=== PATIENT | female | born 1990 | race Caucasian/White ===

== ENCOUNTER 2020-09-19 10:58 | Outpatient (REF) | payer OTHER, SELFPAY | END 2020-09-19 10:59 | disposition home or self-care (01) | LOC: HO.LAB 10:58 | PROVIDERS: Visit Provider Internal Medicine | DX: Z20.828 Contact with and (suspected) exposure to other viral communicable diseases (principal) | CPT/HCPCS: C9803; U0003 ==

== ENCOUNTER 2020-11-16 13:45 | Outpatient (REF) | payer OTHER, SELFPAY ==
[2020-11-20 21:52] LABS: HPV mRNA E6/E7 Not Detected (Not Detected)
== END 2020-11-16 13:46 | disposition home or self-care (01) ==
LOC: HO.LAB 13:45
PROVIDERS: PCP Internal Medicine; Visit Provider Obstetrics & Gynecology
DX: Z01.419 Encounter for gynecological examination (general) (routine) without abnormal findings (principal); Z79.899 Other long term (current) drug therapy
CPT/HCPCS: 36415; 87624; 87625; 88141; 88142

== ENCOUNTER 2020-12-15 10:37 | Outpatient (REF) | payer OTHER, SELFPAY | END 2020-12-15 10:38 | disposition home or self-care (01) | LOC: HO.LAB 10:37 | PROVIDERS: PCP Internal Medicine; Visit Provider Internal Medicine | DX: Z20.822 Contact with and (suspected) exposure to COVID-19 (principal) | CPT/HCPCS: 36415; C9803; U0003; U0005 ==

== ENCOUNTER 2021-02-02 09:45 | Outpatient (REF) | payer OTHER, SELFPAY ==
[2021-02-02 12:11] LABS: COVID-19 Test Negative (Negative); IDNOW Serial# 55D5AD1C
== END 2021-02-02 09:46 | disposition home or self-care (01) ==
LOC: HO.LAB 09:45
PROVIDERS: Visit Provider Internal Medicine
DX: Z20.822 Contact with and (suspected) exposure to COVID-19 (principal)
CPT/HCPCS: 36415; 87635; C9803

== ENCOUNTER 2021-04-06 12:21 | Outpatient (REF) | payer OTHER, SELFPAY ==
[2021-04-06 14:12] LABS: Glucose Urine UA NEG (NEG); Leukocyte Esterase Urine NEG (NEG); Nitrite Urine NEG (NEG); PH 7.5 (5.0-8.0); Specific Gravity - Urine <= 1.005 (1.005-1.025); Urine Blood NEG (NEG); Urine Ketones NEG (NEG); Urine Protein NEG (NEG-TRACE)
[2021-04-06 14:14] LABS: Appearance Urine HAZY; Color Urine YELLOW
[2021-04-06 15:04] LABS: Alanine Aminotransferase 26 U/L (0-31); Alkaline Phosphatase 30 U/L (39-117); Anion Gap 11 (12-20); Aspartate Amino Transferase 26 U/L (5-31); Bilirubin Direct 0.3 mg/dL (0.0-0.5); Bilirubin Total 0.7 mg/dL (0.0-1.0); Blood Urea Nitrogen 8 mg/dL (9-16); Calcium 8.6 mg/dL (8.4-10.2); Carbon Dioxide 24 mmol/L (22-29); Chloride 109 mmol/L (96-108); Estimated Glomerular Filt Rate > 60; Glucose Random 97 mg/dL (60-115); Potassium 3.8 mmol/L (3.3-5.1); Sodium 140 mmol/L (135-145); Total Protein 7.1 g/dL (6.5-8.0)
== END 2021-04-06 12:22 | disposition home or self-care (01) ==
LOC: HO.LAB 12:21
PROVIDERS: PCP Internal Medicine; Visit Provider Physician Assistant
DX: R30.0 Dysuria (principal); R10.9 Unspecified abdominal pain
CPT/HCPCS: 36415; 80048; 80076; 81003

== ENCOUNTER 2021-04-08 10:12 | Emergency (ER) | payer OTHER, SELFPAY ==
[2021-04-08 11:09] VITALS: BP 171/92; PULSE 81; RESP 18; TEMP 36.8; O2SAT 100; BMI 35.2
--- NOTE | 2021-04-08 11:18 | ED.GENADULT ---
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 She had blood work and urine testing done by her PCP on Friday but had not heard the results. She is worried it is kidney related. She also reports an episode of dizziness this morning that last about 3 minutes when she was trying to make her bed. She also reports intermittent SOB and palpitations. She says her back pain is worse with deep breaths. No cough, no chest pain. MD complaint: back pain Onset (ago): week(s) (1) Location: back Radiation: non-radiation Severity: moderate Severity scale (1-10): 6 Quality: stabbing and aching Pain Consistency: constant Relieving factors: rest Exacerbating factors: movement and other (cough, deep breaths) Associated symptoms: shortness of breath Treatments prior to arrival: none Related Data Home Medications Medication Instructions Recorded Confirmed acetazolamide 500 mg 500 mg PO DAILY cap 08/16/20 11/16/20 capsule,extended release adalimumab 40 mg/0.8 mL See Rx Instructions SUBCUT .COMPLEX 08/16/20 11/16/20 subcutaneous syringe kit dorzolamide 22.3 mg-timolol 6.8 1 drp OPHTHALMIC (EYE) BID 08/16/20 11/16/20 mg/mL eye drops Previous Rx's Medication Instructions Recorded norgestimate-ethinyl estradiol 1 tab PO DAILY #28 tab 11/16/20 0.18 mg/0.215mg/0.25mg-35 mcg(28)tablet cyclobenzaprine 5 mg PO TID PRN #14 tab 04/08/21 ibuprofen 600 mg PO Q8H PRN #10 tab 04/08/21 lidocaine [Lidoderm] 1 patch TOPICAL DAILY #15 ea 04/08/21 Allergies Allergy/AdvReac Type Severity Reaction Status Date / Time amoxicillin [Amoxicillin] Allergy Mild HIVES Verified 11/16/20 13:49 amitriptyline Allergy Unknown increase Verified 11/16/20 13:49 [facility] sumatriptan Allergy Unknown Unknown Verified 11/16/20 13:49 Review of Systems Review of Systems: Constitutional: No Fever, No Chills ENT/Mouth: No sore throat, No Rhinorrhea, No Swallowing Difficulty Eyes: No Eye Pain, No Swelling, No Redness Cardiovascular: No Chest Pain, + SOB, No Orthopnea, No Edema Respiratory: No Cough, No Sputum, No Wheezing, No dyspnea Gastrointestinal: No Nausea, No Vomiting, No Diarrhea, No abdominal Pain Genitourinary: No Dysuria, No Urinary Frequency, No Hematuria Musculoskeletal: + joint pain, + Myalgias Skin: No Skin Lesions, No rash Neuro: No Weakness, No Numbness, + Dizziness, No Headache Psych: + Anxiety/Panic, No Depression Heme/Lymph: No Bruising, No Lymphadenopathy Endocrine: No Polyuria, No Polydipsia [facility] Past Medical History Attestation statement: The following information was validated with the patient. Surgical History History of bilateral cataract extraction History of eye surgery History of glaucoma Family History Family History Father No problems noted. Mother No problems noted. Maternal Uncle FH: testicular cancer Social History Social History Alcohol intake: current Alcohol intake frequency: holidays/special occasions only Patient Tobacco Use Status: Never used Tobacco Use of substances other than those prescribed or required for medical reasons: No Advance Directives: Yes Advance Directives Information Provided: Yes Advance Directives on File: No Patient : No Gender identity: female Physical Exam Vital Signs: Vital Signs: Last Vital Signs Temp 98.2 F 04/08/21 12:00 Pulse 63 04/08/21 12:00 Resp 18 04/08/21 12:00 BP 127/70 04/08/21 12:00 Pulse Ox 100 04/08/21 12:00 Body Mass Index 35.2 Appearance: Alert. Oriented X3. No acute distress. Eyes: Pupils equal, round and reactive to light. ENT: Pharynx normal. Neck: Normal inspection. Neck supple. CVS: Normal heart rate and rhythm. Pulses normal. Respiratory: No respiratory distress. Breath sounds normal. Abdomen: Soft and non-tender. +BS x4 Back: thoracic back tenderness of the soft tissues bilaterally Skin: Skin warm and dry. Normal skin color. Normal skin turgor. No rashes. Extremities: No lower extremity edema. Negative Jordan's sign. Neuro: Oriented X 3. No motor deficit. No sensory deficit. Course Course Course Narrative: 30 y/o female with history of RA and glaucoma presenting with back pain and dizziness. She appears well and pain is reproducible on exam, probable muscular pain. Will get repeat labs and UA - doubt pyelonephritis and doubt kidney stones given pain is bilateral. Reevaluation(s) Reevaluation #1: Labs and UA are unremarkable. DDIMER is negative. Will treat for muscular back pain and have her f/u with her PCP this week. Patient agrees with plan. Medical Decision Making Lab Data Result diagrams: 04/08/21 11:24 04/08/21 11:24 Labs: Lab Results 04/08/21 04/08/21 04/08/21 Range/Units 11:18 11:18 11:24 WBC 9.1 (4.8-10.8) X10*3/uL RBC 4.31 (4.20-5.50) X10*6/uL Hgb 12.8 (12.0-16.0) g/dl Hct 38.5 (37-47) % MCV 89.3 (80-98) fL MCH 29.7 (27.0-33.0) pg MCHC 33.2 (31.0-35.0) g/dl RDW 12.1 (11.0-16.0) % Plt Count 195 (160-400) X10*3/uL MPV 10.2 (9.4-12.3) fL Immature Gran % (Auto) 0.2 (0.0-0.4) % Neut % (Auto) 63.2 (45-73) % Lymph % (Auto) 25.4 (20-40) % [place] % (Auto) 8.3 (2-11) % Eos % (Auto) 2.0 (0-4) % Baso % (Auto) 0.9 (0-2) % Lymph # (Auto) 2.3 (1.2-4.9) X10*3/uL [place] # (Auto) 0.8 (0.1-1.2) X10*3/uL Eos # (Auto) 0.2 (0.0-0.4) X10*3/uL Baso # (Auto) 0.1 (0.0-0.2) X10*3/uL Abs Immat Gran (auto) 0.02 (0.00-0.03) X10*3/uL Absolute Neuts (auto) 5.7 (2.0-8.3) X10*3/uL Absolute Nucleated RBC 0.000 (0.0-0.012) X10*3/uL Nucleated RBC % (auto) 0.0 (0.0-0.2) /100WBC D-Dimer NG/ML Sodium (135-145) mmol/L Potassium (3.3-5.1) mmol/L Chloride (96-108) mmol/L Carbon Dioxide (22-29) mmol/L Anion Gap (12-20) BUN (9-16) mg/dL Creatinine (0.5-1.4) mg/dL Estim Creat Clear Calc Estimated GFR Random Glucose (60-115) mg/dL Calcium (8.4-10.2) mg/dL Magnesium (1.6-2.6) mg/dL Total Bilirubin (0.0-1.0) mg/dL Direct Bilirubin (0.0-0.5) mg/dL AST (5-31) U/L ALT (0-31) U/L Alkaline Phosphatase (39-117) U/L Total Protein (6.5-8.0) g/dL Albumin (3.5-5.0) g/dL Urine Color STRAW Urine Appearance CLEAR Urine pH 7.0 (5.0-8.0) Ur Specific [place] <= 1.005 (1.005-1.025) Urine Protein NEG (NEG-TRACE) MG/DL Urine Glucose (UA) NEG (NEG) MG/DL Urine Ketones NEG (NEG) MG/DL Urine Blood NEG (NEG) Urine Nitrite NEG (NEG) Ur Leukocyte Esterase NEG (NEG) Urine Test NEGATIVE (NEGATIVE) 04/08/21 04/08/21 Range/Units 11:24 12:35 WBC (4.8-10.8) X10*3/uL RBC (4.20-5.50) X10*6/uL Hgb (12.0-16.0) g/dl Hct (37-47) % MCV (80-98) fL MCH (27.0-33.0) pg MCHC (31.0-35.0) g/dl RDW (11.0-16.0) % Plt Count (160-400) X10*3/uL MPV (9.4-12.3) fL Immature Gran % (Auto) (0.0-0.4) % Neut % (Auto) (45-73) % Lymph % (Auto) (20-40) % [place] % (Auto) (2-11) % Eos % (Auto) (0-4) % Baso % (Auto) (0-2) % Lymph # (Auto) (1.2-4.9) X10*3/uL [place] # (Auto) (0.1-1.2) X10*3/uL Eos # (Auto) (0.0-0.4) X10*3/uL Baso # (Auto) (0.0-0.2) X10*3/uL Abs Immat Gran (auto) (0.00-0.03) X10*3/uL Absolute Neuts (auto) (2.0-8.3) X10*3/uL Absolute Nucleated RBC (0.0-0.012) X10*3/uL Nucleated RBC % (auto) (0.0-0.2) /100WBC D-Dimer < 200 NG/ML Sodium 138 (135-145) mmol/L Potassium 3.8 (3.3-5.1) mmol/L Chloride 108 (96-108) mmol/L Carbon Dioxide 22 (22-29) mmol/L Anion Gap 12 (12-20) BUN 11 (9-16) mg/dL Creatinine 0.77 (0.5-1.4) mg/dL Estim Creat Clear Calc 126.7 Estimated GFR > 60 Random Glucose 85 (60-115) mg/dL Calcium 8.9 (8.4-10.2) mg/dL Magnesium 2.1 (1.6-2.6) mg/dL Total Bilirubin 0.7 (0.0-1.0) mg/dL Direct Bilirubin 0.3 (0.0-0.5) mg/dL AST 28 (5-31) U/L ALT 29 (0-31) U/L Alkaline Phosphatase 31 L (39-117) U/L Total Protein 7.2 (6.5-8.0) g/dL Albumin 4.0 (3.5-5.0) g/dL Urine Color Urine Appearance Urine pH (5.0-8.0) Ur Specific [place] (1.005-1.025) Urine Protein (NEG-TRACE) MG/DL Urine Glucose (UA) (NEG) MG/DL Urine Ketones (NEG) MG/DL Urine Blood (NEG) Urine Nitrite (NEG) Ur Leukocyte Esterase (NEG) Urine Test (NEGATIVE) Discharge Plan Discharge Clinical Impression: Thoracic back pain Qualifiers: Chronicity: acute Back pain laterality: bilateral Qualified Code(s): M54.6 - Pain in thoracic spine Patient Disposition: Home, Self-Care Instructions: Back Pain (ED) Additional Instructions: Your lab workup today was normal. Your urine test was normal. It is likely that your pain is muscular in nature. No bending, lifting or twisting. Use ice several times per day for 20 minutes at a time for the next 48 hours and then change to heat. Take medications as prescribed to help with pain and discomfort. Follow up with your Primary Care Doctor this week. If your pain worsens, if you develop any new or concerning sympotoms come back to the ER right away for evaluation. Prescriptions: New cyclobenzaprine 5 mg tablet 5 mg PO TID PRN (Reason: muscle spasm) Qty: 14 RF: 0 ibuprofen 600 mg tablet 600 mg PO Q8H PRN (Reason: pain) Qty: 10 RF: 0 lidocaine [Lidoderm] 5 % adhesive patch,medicated 1 patch topical DAILY Qty: 15 RF: 0 No Action acetazolamide 500 mg capsule, extended release 500 mg PO DAILY RF: 0 dorzolamide-timolol [Cosopt] 22.3-6.8 mg/mL drops 1 drp ophthalmic (eye) BID RF: 0 Humira 40 mg/0.8 mL syringe kit See Rx Instructions subcut .COMPLEX RF: 0 norgestimate-ethinyl estradiol [Ortho Tri-Cyclen (28)] 0.18/0.215/0.25 mg-35 mcg (28) tablet 1 tab PO DAILY Qty: 28 RF: 11 Interventions: ED Discharge Assessment Last Done: 04/08/21 13:15 Discharge Date/Time: 04/08/21 13:17
[2021-04-08 11:26] LABS: Glucose Urine UA NEG (NEG); Leukocyte Esterase Urine NEG (NEG); Nitrite Urine NEG (NEG); Specific Gravity - Urine <= 1.005 (1.005-1.025); Urine Blood NEG (NEG); Urine Ketones NEG (NEG); Urine Protein NEG (NEG-TRACE)
[2021-04-08 11:28] LABS: MANUAL DIFF FLAG NO
[2021-04-08 11:28] LABS: Appearance Urine CLEAR; Color Urine STRAW
[2021-04-08 11:29] LABS: UPreg QC Valid YES; Urine Pregnancy NEGATIVE (NEGATIVE)
[2021-04-08 11:30] LABS: Basophils Absolute Auto 0.1 X10*3/uL (0.0-0.2); Basophils Percent Auto 0.9 % (0-2); Eosinophils Absolute Auto 0.2 X10*3/uL (0.0-0.4); Hematocrit 38.5 % (37-47); Hemoglobin 12.8 g/dl (12.0-16.0); Imm Gran Abs Auto 0.02 X10*3/uL (0.00-0.03); Imm Gran Pct Auto 0.2 % (0.0-0.4); Lymphocytes Absolute Auto 2.3 X10*3/uL (1.2-4.9); Lymphocytes Percent Auto 25.4 % (20-40); Mean Corpuscular HGB Conc 33.2 g/dl (31.0-35.0); Mean Corpuscular Hemoglobin 29.7 pg (27.0-33.0); Mean Corpuscular Volume 89.3 fL (80-98); Mean Platelet Volume 10.2 fL (9.4-12.3); Monocytes Absolute Auto 0.8 X10*3/uL (0.1-1.2); Monocytes Percent Auto 8.3 % (2-11); Neutrophils Absolute Auto 5.7 X10*3/uL (2.0-8.3); Neutrophils Percent Auto 63.2 % (45-73); Platelet Count 195 X10*3/uL (160-400); Red Blood Count 4.31 X10*6/uL (4.20-5.50); Red Cell Distribution Width 12.1 % (11.0-16.0); White Blood Count 9.1 X10*3/uL (4.8-10.8)
[2021-04-08 12:00] VITALS: BP 127/70; PULSE 63; RESP 18; TEMP 36.8; O2SAT 100
[2021-04-08 12:08] LABS: Alanine Aminotransferase 29 U/L (0-31); Alkaline Phosphatase 31 U/L (39-117); Anion Gap 12 (12-20); Aspartate Amino Transferase 28 U/L (5-31); Bilirubin Direct 0.3 mg/dL (0.0-0.5); Bilirubin Total 0.7 mg/dL (0.0-1.0); Blood Urea Nitrogen 11 mg/dL (9-16); Calcium 8.9 mg/dL (8.4-10.2); Carbon Dioxide 22 mmol/L (22-29); Chloride 108 mmol/L (96-108); Creatinine Clr Calc Pharmacy 126.7; Estimated Glomerular Filt Rate > 60; Glucose Random 85 mg/dL (60-115); Magnesium 2.1 mg/dL (1.6-2.6); Potassium 3.8 mmol/L (3.3-5.1); Sodium 138 mmol/L (135-145); Total Protein 7.2 g/dL (6.5-8.0)
[2021-04-08 12:54] LABS: D Dimer < 200 NG/ML
== END 2021-04-08 13:17 | disposition home or self-care (01) ==
PROVIDERS: Physician Assistant; Emergency Provider Emergency Medicine Emergency Medical Services; PCP Internal Medicine
DX: M54.6 Pain in thoracic spine (principal); R42 Dizziness and giddiness
CPT/HCPCS: 36415; 80048; 80076; 81003; 81025; 83735; 85025; 85379; 99284

== ENCOUNTER 2021-08-09 10:55 | Outpatient (REF) | payer OTHER, SELFPAY ==
[2021-08-09 11:09] LABS: MANUAL DIFF FLAG NO
[2021-08-09 11:34] LABS: Basophils Absolute Auto 0.1 X10*3/uL (0.0-0.2); Basophils Percent Auto 0.7 % (0-2); Eosinophils Absolute Auto 0.2 X10*3/uL (0.0-0.4); Eosinophils Percent Auto 1.9 % (0-4); Hemoglobin 12.7 g/dl (12.0-16.0); Imm Gran Abs Auto 0.02 X10*3/uL (0.00-0.03); Imm Gran Pct Auto 0.2 % (0.0-0.4); Lymphocytes Absolute Auto 2.4 X10*3/uL (1.2-4.9); Lymphocytes Percent Auto 28.6 % (20-40); Mean Corpuscular HGB Conc 32.6 g/dl (31.0-35.0); Mean Corpuscular Hemoglobin 29.1 pg (27.0-33.0); Mean Corpuscular Volume 89.4 fL (80-98); Mean Platelet Volume 10.1 fL (9.4-12.3); Monocytes Absolute Auto 0.6 X10*3/uL (0.1-1.2); Monocytes Percent Auto 7.7 % (2-11); Neutrophils Absolute Auto 5.1 X10*3/uL (2.0-8.3); Neutrophils Percent Auto 60.9 % (45-73); Platelet Count 216 X10*3/uL (160-400); Red Blood Count 4.36 X10*6/uL (4.20-5.50); Red Cell Distribution Width 12.3 % (11.0-16.0); White Blood Count 8.3 X10*3/uL (4.8-10.8)
[2021-08-09 11:54] LABS: B Type Natriuretic Peptide 58 pg/mL (<100)
[2021-08-09 12:03] LABS: Alanine Aminotransferase 54 U/L (0-31); Alkaline Phosphatase 35 U/L (39-117); Anion Gap 14 (12-20); Aspartate Amino Transferase 31 U/L (5-31); Bilirubin Total 0.9 mg/dL (0.0-1.0); Blood Urea Nitrogen 11 mg/dL (9-16); Calcium 8.9 mg/dL (8.4-10.2); Carbon Dioxide 20 mmol/L (22-29); Chloride 110 mmol/L (96-108); Cholesterol 181 mg/dL; Estimated Glomerular Filt Rate > 60; Glucose Random 92 mg/dL (60-115); HDL Cholesterol 67 mg/dL; LDL Cholesterol Calculated 79 mg/dl; Potassium 3.6 mmol/L (3.3-5.1); Sodium 140 mmol/L (135-145); Total Protein 7.2 g/dL (6.5-8.0); Triglycerides 179 mg/dL
[2021-08-09 12:07] LABS: Free T4 (Free Thyroxine) 0.81 ng/dL (0.71-1.85); Vitamin D 25-OH Total 25.7 ng/mL (>30)
[2021-08-09 12:23] LABS: Appearance Urine HAZY; Color Urine YELLOW; Glucose Urine UA NEG (NEG); Leukocyte Esterase Urine NEG (NEG); Nitrite Urine NEG (NEG); Specific Gravity - Urine 1.015 (1.005-1.025); Urine Blood NEG (NEG); Urine Ketones NEG (NEG); Urine Protein NEG (NEG-TRACE)
[2021-08-09 12:24] LABS: Folate 19.8 ng/mL (> or = 4.0); Vitamin B12 293 pg/mL (200-900)
[2021-08-09 12:28] LABS: Erythrocyte Sedimentation Rate 8 MM/HR (0-20)
[2021-08-09 13:56] LABS: Bacteria Urine 2+ /LPF; RBC Urine 0 /HPF (0); Squamous Epithelial Cell Urine 3+ /LPF; WBC Urine 0-2 /HPF (0-4)
[2021-08-10 08:36] LABS: Lyme Abs Screen <0.90 index
== END 2021-08-09 10:56 | disposition home or self-care (01) ==
LOC: HO.LAB 10:55
PROVIDERS: PCP Internal Medicine; Visit Provider Internal Medicine
DX: R55 Syncope and collapse (principal); E78.00 Pure hypercholesterolemia, unspecified
CPT/HCPCS: 36415; 80053; 80061; 81001; 82306; 82607; 82746; 83880; 84439; 85025; 85652; 86617; 86618

== ENCOUNTER 2021-08-30 07:52 | Outpatient (REF) | payer OTHER, SELFPAY ==
--- NOTE | ~2021-08-30 | US_ITS ---
EXAMINATION: US ABDOMEN COMPLETE CLINICAL INFORMATION: Other specified abnormal findings of blood chemistry. COMPARISON: None TECHNIQUE: Real-time imaging of the abdominal viscera. FINDINGS: PANCREAS: Normal. ABDOMINAL AORTA: The proximal, mid, and distal segments are normal in caliber. INFERIOR VENA CAVA: Visualized portions are normal. LIVER: The liver is normal in size. The liver contour is normal. Liver echotexture is increased. No focal hepatic lesion. There is no intrahepatic biliary duct dilatation seen. GALLBLADDER: Normal. The gallbladder is physiologically distended without evidence of stones, sludge, polyps, wall thickening or pericholecystic fluid. COMMON BILE DUCT: Normal in caliber measuring 0.3 cm in diameter. RIGHT KIDNEY: Normal. No hydronephrosis. No renal calculi or focal parenchymal lesions. The kidney measures 10.3 cm in maximum dimension. LEFT KIDNEY: Normal. No hydronephrosis. No renal calculi or focal parenchymal lesions. The kidney measures 10.4 cm in maximum dimension. SPLEEN: Normal. The spleen measures 8.8 cm in maximum dimension. FREE FLUID: None. US/US abdomen complete IMPRESSION: Echogenic liver probably representing fatty infiltration. Otherwise unremarkable exam.
[2021-08-30 09:29] LABS: Alanine Aminotransferase 88 U/L (0-31); Albumin Level 4.2 g/dL (3.5-5.0); Alkaline Phosphatase 36 U/L (39-117); Anion Gap 11 (12-20); Aspartate Amino Transferase 70 U/L (5-31); Bilirubin Total 0.7 mg/dL (0.0-1.0); Blood Urea Nitrogen 9 mg/dL (9-16); Calcium 8.8 mg/dL (8.4-10.2); Carbon Dioxide 24 mmol/L (22-29); Chloride 110 mmol/L (96-108); Estimated Glomerular Filt Rate > 60; Glucose Random 100 mg/dL (60-115); Iron 78 mcg/dL (30-160); Percent Iron Saturation 19 % (15-50); Potassium 3.9 mmol/L (3.3-5.1); Sodium 141 mmol/L (135-145); Total Iron Binding Capacity 401 mcg/dL (228-428); Total Protein 7.4 g/dL (6.5-8.0); Unsaturated Iron Binding 323 ug/dL
[2021-08-30 09:44] LABS: HBS Num1 0.83 mIU/mL (0-7.99); HBc Num1 0.07 S/CO (0.00-0.79); HBsAGNum1 0.22 S/CO (0.00-0.99); Hepatitis B Core Antibody Nonreactive (Nonreactive); Hepatitis B Surface Antigen Negative (Negative); ~HepC Num1 0.09 S/CO (0.00-0.79); ~Hepatitis B Surface Antibody NONREACTIVE (Nonreactive); ~Hepatitis C Antibody Nonreactive (Nonreactive)
[2021-08-30 09:58] LABS: Ferritin 38 ng/mL (10-122)
[2021-08-31 13:46] LABS: Ceruloplasmin 35 mg/dL (18-53)
== END 2021-08-30 07:53 | disposition home or self-care (01) ==
LOC: HO.US 07:52
PROVIDERS: PCP Internal Medicine; Visit Provider Internal Medicine
DX: R79.89 Other specified abnormal findings of blood chemistry (principal); R94.5 Abnormal results of liver function studies
CPT/HCPCS: 36415; 76700; 80053; 82390; 82728; 83540; 86704; 86706; 86803; 87340

== ENCOUNTER 2021-09-21 14:05 | Outpatient (REF) | payer OTHER, SELFPAY ==
--- NOTE | ~2021-09-21 | MR_ITS ---
EXAMINATION: MR BRAIN WITHOUT CONTRAST CLINICAL INFORMATION: Seizures. Dizziness and vertigo. COMPARISON: Head CT dated 07/03/2014. TECHNIQUE: Multiplanar, multisequence imaging of the brain was acquired on a 1.5 Marzena magnet without contrast. FINDINGS: No diffusion abnormalities are identified to suggest an acute infarct. The ventricles are normal in size. No mass effect or midline shift is seen. A 7 mm focus of T2 hyperintense signal change in the left parietal white matter is entirely nonspecific. No extra-axial fluid collections are seen. The brainstem and cerebellum are normal. No focal cortical dysplasia or migrational abnormality is seen. The hippocampi are normal in appearance. The gradient refocused acquisition demonstrates no pathologic magnetic susceptibility artifact to indicate underlying acute or chronic blood products. There is a chronically shrunken appearance of the right globe. The left globe is normal in morphology. The craniovertebral junction, marrow signal, and midline structures are normal. The orbits and pituitary axis appear normal. The major intracranial flow-voids at the level of the hoopa of [place] are preserved. The dural venous sinus flow-voids are maintained. The mastoid air cells and paranasal sinuses are well aerated. MR/MR head/brain wo con IMPRESSION: No acute process. Nonspecific subcentimeter focus of signal change in the left parietal white matter of indeterminate clinical significance. No hippocampal pathology or epileptogenic focus otherwise identified.
== END 2021-09-21 14:06 | disposition home or self-care (01) ==
LOC: HO.MRI 14:05
PROVIDERS: PCP Internal Medicine; Visit Provider Psychiatry & Neurology Neurology
DX: R56.9 Unspecified convulsions (principal); R42 Dizziness and giddiness
CPT/HCPCS: 70551

== ENCOUNTER 2021-10-10 17:08 | Emergency (ER) | payer OTHER, SELFPAY ==
[2021-10-10 17:23] VITALS: BP 168/88; PULSE 76; RESP 18; TEMP 36.9; O2SAT 98; BMI 35.0
--- NOTE | 2021-10-10 19:24 | ED_ITS ---
HPI - General Adult General Chief complaint: General Medical Stated complaint: No feeling on index finger/+Covid Time Seen by Provider: 10/10/21 19:24 Source: patient Mode of arrival: ambulatory Limitations: no limitations History of Present Illness HPI narrative: 31-year-old female who was recently diagnosed COVID-19 presents to ER with numbness in her left index finger for the last MD complaint: left index finger numbness Related Data Home Medications Medication Instructions Recorded Confirmed acetazolamide 500 mg 500 mg PO DAILY cap 08/16/20 07/31/21 capsule,extended release adalimumab 40 mg/0.8 mL See Rx Instructions SUBCUT .COMPLEX 08/16/20 07/31/21 subcutaneous syringe kit (Humira) dorzolamide 22.3 mg-timolol 6.8 1 drp OPHTHALMIC (EYE) BID 08/16/20 07/31/21 mg/mL eye drops (Cosopt) loteprednol etabonate 0.5 % eye 1 drp OPHTHALMIC (EYE) BID 07/31/21 07/31/21 drops,suspension (Lotemax) Previous Rx's Medication Instructions Recorded norgestimate-ethinyl estradiol 1 tab PO DAILY #28 tab 11/16/20 0.18 mg/0.215mg/0.25mg-35 mcg(28)tablet (Ortho Tri-Cyclen (28)) Allergies Allergy/AdvReac Type Severity Reaction Status Date / Time amoxicillin [Amoxicillin] Allergy Mild HIVES Verified 07/31/21 14:50 amitriptyline Allergy Unknown increase Verified 07/31/21 14:50 [facility] sumatriptan Allergy Unknown Unknown Verified 07/31/21 14:50 [facility] Past Medical History Medical History (Updated 08/09/21 @ 18:56 by Javed Lopez MD) Asthma Cervical dysplasia Generalized anxiety disorder Glaucoma Juvenile rheumatoid arthritis Migraine Obesity (BMI 30-39.9) Surgical History History of bilateral cataract extraction History of eye surgery History of glaucoma Family History Family History (Updated 07/31/21 @ 16:30 by Javed Lopez MD) Father Substance abuse Mother No problems noted. Maternal Uncle FH: testicular cancer Social History Social History (Updated 07/31/21 @ 16:31 by Javed Lopez MD) Housing: Other Alcohol intake: current Alcohol intake frequency: holidays/special occasions only Patient Tobacco Use Status: Former Tobacco user Tobacco use type: Cigarette Years Smoked: 2019 e-Cigarette/Vaping Use: Never Used Second Hand Smoke Exposure: No Current occupational status: unemployed Gender identity: Female Physical Exam Vital Signs: Vital Signs: Last Vital Signs Temp 98.4 F 10/10/21 17:23 Pulse 76 10/10/21 17:23 Resp 18 10/10/21 17:23 BP 168/88 H 10/10/21 17:23 Pulse Ox 98 10/10/21 17:23 BMI result Body Mass Index 35.0 Discharge Plan Discharge Prescriptions: No Action loteprednol etabonate [Lotemax] 0.5 % drops,suspension 1 drp ophthalmic (eye) BID RF: 0 acetazolamide 500 mg capsule, extended release 500 mg PO DAILY RF: 0 dorzolamide-timolol [Cosopt] 22.3-6.8 mg/mL drops 1 drp ophthalmic (eye) BID RF: 0 Humira 40 mg/0.8 mL syringe kit See Rx Instructions subcut .COMPLEX RF: 0 norgestimate-ethinyl estradiol [Ortho Tri-Cyclen (28)] 0.18/0.215/0.25 mg-35 mcg (28) tablet 1 tab PO DAILY Qty: 28 RF: 11
== END 2021-10-10 20:47 | disposition left against medical advice (07) ==
PROVIDERS: Emergency Provider Emergency Medicine; PCP Internal Medicine
DX: U07.1 COVID-19 (principal)
CPT/HCPCS: 99281; 99282

== ENCOUNTER 2021-10-11 12:57 | Emergency (ER) | payer OTHER, SELFPAY ==
[2021-10-11 13:35] VITALS: BP 139/74; PULSE 89; RESP 18; TEMP 36.6; O2SAT 99; BMI 35.0
[2021-10-11 16:59] VITALS: BP 132/76; PULSE 78; RESP 16; TEMP 36.8; O2SAT 99
--- NOTE | 2021-10-11 17:11 | ED.GENADULT ---
HPI - General Adult General Chief complaint: General Medical Stated complaint: l index finger blue no sensation Time Seen by Provider: 10/11/21 16:05 Source: patient Mode of arrival: ambulatory Limitations: no limitations History of Present Illness HPI narrative: 31-year-old female diagnosed with COVID this past Friday presents to the ED for evaluation of left hand and left feet. Patient states sometimes left index finger gets cold and left feet get cold. Patient states left index finger yesterday will fabiola when expose to the cold and then returned to normal color. Patient denies any bluish black discoloration of hands or feet. Denies any recent trauma. Patient denies any paralysis of extremities, facial droop, dizziness, headache, chest pain, or shortness of breath. Patient admits to self-isolation. Patient denies any recent trauma. Related Data Home Medications Medication Instructions Recorded Confirmed acetazolamide 500 mg 500 mg PO DAILY cap 08/16/20 07/31/21 capsule,extended release adalimumab 40 mg/0.8 mL See Rx Instructions SUBCUT .COMPLEX 08/16/20 07/31/21 subcutaneous syringe kit (Humira) dorzolamide 22.3 mg-timolol 6.8 1 drp OPHTHALMIC (EYE) BID 08/16/20 07/31/21 mg/mL eye drops (Cosopt) loteprednol etabonate 0.5 % eye 1 drp OPHTHALMIC (EYE) BID 07/31/21 07/31/21 drops,suspension (Lotemax) Previous Rx's Medication Instructions Recorded norgestimate-ethinyl estradiol 1 tab PO DAILY #28 tab 11/16/20 0.18 mg/0.215mg/0.25mg-35 mcg(28)tablet (Ortho Tri-Cyclen (28)) Allergies Allergy/AdvReac Type Severity Reaction Status Date / Time amoxicillin [Amoxicillin] Allergy Mild HIVES Verified 07/31/21 14:50 amitriptyline Allergy Unknown increase Verified 07/31/21 14:50 [facility] sumatriptan Allergy Unknown Unknown Verified 07/31/21 14:50 Review of Systems Review of Systems: Yes all other systems are reviewed and are negative Constitutional: Constitutional: Reports as per HPI and Reports no additional constitutional complaints Eyes: Eyes: Reports as per HPI and Reports no additional eye complaints ENT: Reports system reviewed and no additional complaints, except as documented, Reports as per HPI and Reports Normal hearing present Cardiovascular: Cardiovascular: Reports as per HPI and Reports no additional cardiovascular complaints Respiratory: Respiratory: Reports as per HPI and Reports no additional respiratory complaints Gastrointestinal: Gastrointestinal: Reports as per HPI and Reports no additional gastrointestinal complaints Genitourinary: Genitourinary: Reports no additional female genitourinary complaints and Reports as per HPI Musculoskeletal: Musculoskeletal: Reports no additional musculoskeletal complaints and Reports as per HPI Comments: COVID positive. At times left hand/left foot will feel cold. Neurologic: Reports system reviewed and no additional complaints, except as documented, Reports as per HPI and Reports Normal hearing present Psychiatric: Psychiatric: Reports no additional psychiatric complaints and Reports as per HPI [facility] Past Medical History Medical History (Updated 10/11/21 @ 17:28 by OZ Gee) Asthma Cervical dysplasia Generalized anxiety disorder Glaucoma Juvenile rheumatoid arthritis Migraine Obesity (BMI 30-39.9) Surgical History History of bilateral cataract extraction History of eye surgery History of glaucoma Family History Family History (Updated 07/31/21 @ 16:30 by Javed Lopez MD) Father Substance abuse Mother No problems noted. Maternal Uncle FH: testicular cancer Social History Social History (Updated 07/31/21 @ 16:31 by Javed Lopez MD) Housing: Other Alcohol intake: current Alcohol intake frequency: holidays/special occasions only Patient Tobacco Use Status: Former Tobacco user Tobacco use type: Cigarette Years Smoked: 2019 e-Cigarette/Vaping Use: Never Used Second Hand Smoke Exposure: No Advance Directives: No Advance Directives Information Provided: Yes Current occupational status: unemployed Gender identity: Female Physical Exam Vital Signs: Vital Signs: Last Vital Signs Temp 98.2 F 10/11/21 16:59 Pulse 78 10/11/21 16:59 Resp 16 10/11/21 16:59 BP 132/76 10/11/21 16:59 Pulse Ox 99 10/11/21 16:59 BMI result Body Mass Index 35.0 Const: General: cooperative, healthy appearing, comfortable, no acute distress, well developed, alert, awake and Physically active Orientation/consciousness: oriented to person, oriented to place, oriented to time and patient oriented x3 HENMT: Head: Yes normal to inspection, Yes No palpable skull fracture present, Yes normocephalic, Yes atraumatic and No abrasion Eyes: General: appearance normal, both eyes and all related structures Pupils: Equal, round and reactive pupils present Neck: Neck: Yes normal visual inspection, Yes full ROM, Yes no lymphadenopathy, Yes no meningeal signs, Yes trachea midline, Yes supple, No anterior neck swelling and No tender Chest: Chest palpation & inspection: normal inspection of the chest and normal palpation of entire chest wall Resp: Effort & Inspection: normal respiratory effort and able to speak in complete sentences Auscultation: clear to auscultation bilaterally Cardio: Jugular venous distension: no JVD Heart sounds: S1 normal heart sound present and S2 normal heart sound present GI: Inspection: Yes normal to inspection and No abdominal wall ecchymosis Palpation (GI): Soft to palpation, not firm, nontender, no guarding and not rigid : General: No CVA tenderness and Yes no CVA tenderness Back/Spine/Pelvis: Back: no CVA tenderness, No CVA tenderness and No back tenderness Skin: General skin exam: no rashes or lesions noted and elasticity normal Neuro: General: oriented to person, oriented to place, oriented to time, patient oriented x3, gait normal, tone normal, moves all extremities, Normal light touch and pain sensation, no meningeal signs, no focal motor deficits, CN's II-XI intact bilaterally and deep tendon reflexes 2+ bilaterally Cranial nerves: Yes CN's II-XII intact bilaterally, Yes Facial sensation intact/muscles of mastication intact, Yes Intact sense of smell present, Yes Equal, round and reactive pupils present, Yes Normal accommodation reflex present, Yes Bilaterally intact EOM present, Yes Nystagmus not present, Yes Normal facial strength present, Yes Midline tongue present, Yes Normal gag reflex present, Yes Symmetric palate elevation present, Yes Normal hearing present, Yes Ability to bilaterally rotate head present and Yes Ability to bilaterally elevate shoulders present Extrem: Other: All extremites including left upper and lower extremities have normal color, warm to touch, and motor/nose/vascular exam intact. All extremities Negative for any bluish black discoloration. All extremities Negative for ecchymosis to indicate fracture. All extremities Negative for any swelling or erythema. General: Yes normal to inspection and Yes full ROM Psych: Appearance: grossly normal, well kempt and not disheveled Course Course Course Narrative: Physical exam normal Reevaluation(s) Reevaluation #1: Presently history and physical exam does not indicate arterial occlusion, fracture, or cellulitis. Symptoms could be contributed to Covid Chilblains. Patient was educated on signs and symptoms of arterial occlusion/dVT/cellulitis and informed to return to the ED immediately if she has them. Patient informed to continue quarantine. Time: 17:26 Medical Decision Making MDM Narrative Medical decision making narrative: COVID Discharge Plan Discharge Clinical Impression: COVID Patient Disposition: Home, Self-Care Instructions: COVID-19 (Coronavirus Disease 2019) (ED) Additional Instructions: Presently history physical exam does not indicate arterial occlusion, DVT, cellulitis, or fracture. Return to the ED for any chest pain, shortness of breath, swelling, redness, hotness, coldness, bluish black discoloration of extremities, weakness, fever, chills, or any other concerning symptoms. Continue self quarantine Prescriptions: No Action loteprednol etabonate [Lotemax] 0.5 % drops,suspension 1 drp ophthalmic (eye) BID RF: 0 acetazolamide 500 mg capsule, extended release 500 mg PO DAILY RF: 0 dorzolamide-timolol [Cosopt] 22.3-6.8 mg/mL drops 1 drp ophthalmic (eye) BID RF: 0 Humira 40 mg/0.8 mL syringe kit See Rx Instructions subcut .COMPLEX RF: 0 norgestimate-ethinyl estradiol [Ortho Tri-Cyclen (28)] 0.18/0.215/0.25 mg-35 mcg (28) tablet 1 tab PO DAILY Qty: 28 RF: 11 Interventions: ED Discharge Assessment Last Done: 10/11/21 18:58 Discharge Date/Time: 10/11/21 18:59 Print Language: Panamanian
== END 2021-10-11 18:59 | disposition home or self-care (01) ==
PROVIDERS: Emergency Provider Emergency Medicine; PCP Internal Medicine
DX: U07.1 COVID-19 (principal)
CPT/HCPCS: 99283

== ENCOUNTER 2021-10-23 12:49 | Outpatient (REF) | payer OTHER, SELFPAY ==
--- NOTE | 2021-10-23 12:52 | EEG_ITS ---
The waking background activity consists of a moderate voltage posterior symmetrical alpha of 9-9.5 hertz, mostly low to medium voltage with low voltage fast frequencies anteriorly. Drowsiness is characterized by diffuse theta slowing. During sleep, symmetrical frontal central sleep spindles develop over both hemispheres along with K complexes and deeper stages of sleep with bifrontal delta. Arousals are frequent and unremarkable. The patient remains asymptomatic other than a headache. No focal, lateralizing, or paroxysmal discharges seen. IMPRESSION: This 24-hour ambulatory EEG is within normal limits. MD KELTON Powell/EDUARDO / [id number]
== END 2021-10-23 12:50 | disposition home or self-care (01) ==
LOC: HO.NEURO 12:49
PROVIDERS: Visit Provider Psychiatry & Neurology Neurology
DX: R56.9 Unspecified convulsions (principal)
CPT/HCPCS: 95708

== ENCOUNTER → 2021-11-21 12:55 | Outpatient (BNVA) | payer OTHER, SELFPAY | PROVIDERS: PCP Internal Medicine; Visit Provider Obstetrics & Gynecology ==

== ENCOUNTER 2021-12-12 10:52 | Outpatient (REF) | payer OTHER, SELFPAY ==
--- NOTE | ~2021-12-12 | XR_ITS ---
EXAMINATION: XR CHEST CLINICAL INFORMATION: SOB. Follow-up Covid. COMPARISON: Chest 03/15/2020 TECHNIQUE: 2 views of the chest were obtained. FINDINGS: The lungs are well-expanded and clear. The heart size and pulmonary vascularity is normal. No gross bony abnormality seen. XR/XR chest 2V IMPRESSION: Unremarkable chest exam.
== END 2021-12-12 10:53 | disposition home or self-care (01) ==
LOC: HO.XRAY 10:52
PROVIDERS: PCP Internal Medicine; Visit Provider Internal Medicine
DX: U07.1 COVID-19 (principal)
CPT/HCPCS: 71046

== ENCOUNTER 2022-02-08 10:43 | Outpatient (REF) | payer OTHER, SELFPAY ==
[2022-02-08 12:14] LABS: Alanine Aminotransferase 31 U/L (0-31); Aspartate Amino Transferase 19 U/L (5-31)
== END 2022-02-08 10:44 | disposition home or self-care (01) ==
LOC: HO.LAB 10:43
PROVIDERS: PCP Internal Medicine; Visit Provider Internal Medicine Rheumatology
DX: R94.5 Abnormal results of liver function studies (principal); Z79.899 Other long term (current) drug therapy
CPT/HCPCS: 36415; 84450; 84460

== ENCOUNTER 2022-04-20 11:19 | Outpatient (REF) | payer OTHER, SELFPAY ==
[2022-04-20 12:04] LABS: Binax Internal Control QC Valid; Binax Now Covid-19 Ag Positive (Negative)
[2022-04-20 15:26] LABS: Alanine Aminotransferase 20 U/L (0-31); Albumin Level 4.4 g/dL (3.5-5.0); Alkaline Phosphatase 36 U/L (39-117); Aspartate Amino Transferase 21 U/L (5-31); Bilirubin Direct 0.4 mg/dL (0.0-0.5); Total Protein 7.6 g/dL (6.5-8.0)
== END 2022-04-20 11:20 | disposition home or self-care (01) ==
LOC: HO.HMGCLDS 11:19
PROVIDERS: PCP Internal Medicine; Visit Provider Physician Assistant Medical
DX: R79.89 Other specified abnormal findings of blood chemistry (principal); Z20.822 Contact with and (suspected) exposure to COVID-19
CPT/HCPCS: 36415; 80076; 87811

== ENCOUNTER 2022-07-24 09:34 | Outpatient (REF) | payer OTHER, SELFPAY ==
[2022-07-24 11:19] LABS: HBsAGNum1 0.19 S/CO (0.00-0.99); HIV AB/AG Nonreactive (Nonreactive); HIV Num 1 0.07 S/CO (0.00-0.99); Hepatitis B Surface Antigen Negative (Negative); ~HepC Num1 0.07 S/CO (0.00-0.79); ~Hepatitis C Antibody Nonreactive (Nonreactive)
[2022-07-24 11:21] LABS: Syphilis Screen Nonreactive (Nonreactive)
[2022-07-24 13:22] LABS: CT PCR NOT DETECTED (Not Detect.); NG PCR NOT DETECTED (Not Detect.)
[2022-07-25 13:09] LABS: BV Int Neg Control Negative (Negative); BV Int Pos Control Positive (Positive)
== END 2022-07-24 09:35 | disposition home or self-care (01) ==
LOC: HO.LAB 09:34
PROVIDERS: PCP Internal Medicine; Visit Provider Advanced Practice Midwife
DX: Z30.012 Encounter for prescription of emergency contraception (principal)
CPT/HCPCS: 86780; 86803; 87340; 87389; 87480; 87491; 87510; 87591; 87660; 99212

== ENCOUNTER → 2022-11-26 13:42 | Outpatient (BNVA) | payer OTHER, SELFPAY | PROVIDERS: PCP Internal Medicine; Visit Provider Obstetrics & Gynecology | DX: Z13.89 Encounter for screening for other disorder (principal) ==

== ENCOUNTER 2023-02-21 21:17 | Emergency (ER) | payer OTHER, SELFPAY ==
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
[2023-02-21 21:21] VITALS: BP 136/82; PULSE 102; O2SAT 97
--- NOTE | 2023-02-21 21:27 | PC.NURSE ---
security at bedside, pt states she likes knives and wants her knife back.
[2023-02-21 21:46] VITALS: BP 120/82; PULSE 77; RESP 16; TEMP 36.2; O2SAT 99; BMI 24.0
--- NOTE | 2023-02-21 22:46 | MHC.EDTECH ---
Patient gave this tech permission to speak to Tima patients best friend([phone])
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
[2023-02-22] VITALS (8 sets, daily range): BP systolic 92–142; BP diastolic 62–86; PULSE 67–84; RESP 12–16; O2SAT 96–99
[2023-02-22 00:08] LABS: MANUAL DIFF FLAG NO
[2023-02-22 00:09] LABS: Basophils Absolute Auto 0.1 X10*3/uL (0.0-0.2); Basophils Percent Auto 0.8 % (0-2); Eosinophils Absolute Auto 0.1 X10*3/uL (0.0-0.4); Eosinophils Percent Auto 1.1 % (0-4); Hematocrit 40.3 % (37.0-47.0); Hemoglobin 13.3 g/dl (12.0-16.0); Imm Gran Abs Auto 0.01 X10*3/uL (0.00-0.03); Imm Gran Pct Auto 0.1 % (0.0-0.4); Lymphocytes Absolute Auto 2.2 X10*3/uL (1.2-4.9); Lymphocytes Percent Auto 26.7 % (20-40); Mean Corpuscular Volume 90.8 fL (80.0-98.0); Mean Platelet Volume 10.5 fL (9.4-12.3); Monocytes Absolute Auto 0.4 X10*3/uL (0.1-1.2); Monocytes Percent Auto 5.3 % (2-11); Neutrophils Absolute Auto 5.5 x10*3/uL (2.0-8.3); Platelet Count 193 X10*3/uL (160-400); Red Blood Count 4.44 X10*6/uL (4.20-5.50); Red Cell Distribution Width 12.1 % (11.0-16.0); White Blood Count 8.3 X10*3/uL (4.8-10.8)
[2023-02-22 00:31] LABS: Alanine Aminotransferase 21 U/L (0-31); Albumin Level 4.4 g/dL (3.5-5.0); Alkaline Phosphatase 36 U/L (39-117); Anion Gap 13 (12-20); Aspartate Amino Transferase 19 U/L (5-31); Bilirubin Direct 0.3 mg/dL (0.0-0.5); Bilirubin Total 0.8 mg/dL (0.0-1.0); Blood Urea Nitrogen 5 mg/dL (9-16); Calcium 8.6 mg/dL (8.4-10.2); Carbon Dioxide 23 mmol/L (22-29); Chloride 117 mmol/L (96-108); Creatinine Clr Calc Pharmacy 100.8; Estimated Glomerular Filt Rate > 60; Ethanol 238 mg/dL; Glucose Random 91 mg/dL (60-115); HCG Quantitative < 2 mIU/mL; Potassium 4.1 mmol/L (3.3-5.1); Sodium 149 mmol/L (135-145); Total Protein 7.4 g/dL (6.5-8.0)
[2023-02-22] MEDS: LORazepam 2 MG/ML VIAL IM (00:58)
[2023-02-22] MEDS: diphenhydrAMINE HCL 50 MG/ML VIAL IM (00:58)
[2023-02-22] MEDS: Haloperidol Lactate 5 MG/ML VIAL IM (00:58)
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
--- NOTE | 2023-02-22 02:10 | PC.NURSE ---
updated note: at 0048 pt stated to sitter that she wants a fat blunt, and drink, a smoke, and where is my boyfriend at.
--- NOTE | 2023-02-22 02:15 | PC.NURSE ---
pt is sleeping and ready for ct. radiology made aware.
[2023-02-22] MEDS: Diphth,Pertus(ACell),Tet Adult 0.5 ML SYRINGE IM (03:06)
--- NOTE | 2023-02-22 03:56 | PC.NURSE ---
Pt was able to fall asleep aprox 1 hour following IM medication administration. Pt had her CT scan, was feeling nauseous during scan. Will not administer P.O. med until she is alert enough to swallow liquids. All charting and vitals documented by Neris ALCARAZ relating to sedation and administration of IM medications.
--- NOTE | 2023-02-22 07:47 | PC.NURSE ---
Pt sleeping in bed, respirations even and unlabored. Patient observer at bedside.
--- NOTE | 2023-02-22 09:05 | PC.NURSE ---
pt has visitor that continues to wait in waiting room, asking registration about pt update.
[2023-02-22 10:37] LABS: Amphetamine Screen Urine Not Detected (Not Detect); Barbiturates, Urine Not Detected (Not Detect); Benzodiazepines Screen Urine Not Detected (Not Detect); Cannabinoid Screen Urine POSITIVE (Not Detect); Cocaine Screen Urine Not Detected (Not Detect); Fentanyl, urine Not Detected (Not Detect); Opiate Screen Urine Not Detected (Not Detect); Phencyclidine Screen Urine Not Detected (Not Detect)
== END 2023-02-22 11:09 | disposition home or self-care (01) ==
PROVIDERS: Emergency Provider Emergency Medicine; PCP Internal Medicine
DX: S71.111A Laceration without foreign body, right thigh, initial encounter (principal); X78.1XXA Intentional self-harm by knife, initial encounter; F10.90 Alcohol use, unspecified, uncomplicated; Y90.7 Blood alcohol level of 200-239 mg/100 ml; F91.8 Other conduct disorders; M79.651 Pain in right thigh; F41.1 Generalized anxiety disorder; K76.0 Fatty (change of) liver, not elsewhere classified; F12.90 Cannabis use, unspecified, uncomplicated; Y93.89 Activity, other specified; Y92.019 Unspecified place in single-family (private) house as the place of occurrence of the external cause; Y99.9 Unspecified external cause status; Z87.891 Personal history of nicotine dependence; Z79.899 Other long term (current) drug therapy
CPT/HCPCS: 12001; 36415; 73700; 80048; 80076; 80307; 82077; 84702; 85025; 90471; 90715; 96372; 99284; 99285; J1200; J2060; S9485

== ENCOUNTER 2023-08-05 12:50 | Outpatient (AMB) | payer OTHER, SELFPAY ==
[2023-08-05 12:56] VITALS: BP 114/70; PULSE 60; BMI 21.6
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
== END 2023-08-05 13:33 | disposition home or self-care (01) ==
PROVIDERS: Visit Provider Internal Medicine
DX: Z00.00 Encounter for general adult medical examination without abnormal findings (principal); M08.00 Unspecified juvenile rheumatoid arthritis of unspecified site; J45.909 Unspecified asthma, uncomplicated; F41.1 Generalized anxiety disorder; B07.9 Viral wart, unspecified; B07.0 Plantar wart
CPT/HCPCS: 96127; 99395

== ENCOUNTER 2023-10-19 20:26 | Emergency (ER) | payer OTHER, SELFPAY ==
[2023-10-19 20:46] VITALS: BP 134/75; PULSE 84; RESP 18; TEMP 37.2; O2SAT 99; BMI 20.6
--- NOTE | 2023-10-19 20:52 | ED.EAR ---
HPI - Ear Problem General Chief complaint: Ear Problems Stated complaint: foreign object right ear Time Seen by Provider: 10/19/23 20:50 Source: patient Mode of arrival: ambulatory Limitations: no limitations History of Present Illness HPI Narrative: Patient is a 33 year old female who presents to the emergency department for evaluation of right ear pain. Reports sudden onset yesterday evening with decreased urine denies any active drainage from the ear. She does state that she believes one of her stud earrings may have fallen into the ear canal as it was not there when she went to examine at onset of pain. She does state that she has recently been experiencing a mild nonproductive cough as well. Related Data Home Medications Medication Instructions Recorded Confirmed adalimumab 40 mg/0.8 mL See Rx Instructions subcut .COMPLEX 08/16/20 08/05/23 subcutaneous syringe kit (Humira) loteprednol etabonate 0.5 % eye 1 drp ophthalmic (eye) BID 07/31/21 08/05/23 drops,suspension (Lotemax) acetazolamide 500 mg 500 mg PO Q12H 11/21/21 08/05/23 capsule,extended release dorzolamide 22.3 mg-timolol 6.8 1 drp ophthalmic (eye) BID 08/05/23 08/05/23 mg/mL eye drops (Cosopt) Previous Rx's Medication Instructions Recorded albuterol sulfate 90 mcg/actuation 2 puff inhalation QID PRN 10/15/21 aerosol inhaler (ProAir HFA) shortness of breath or wheezing #8.5 grams cefuroxime axetil 500 mg tablet 500 mg PO BID #19 tabs 10/19/23 Allergies Allergy/AdvReac Type Severity Reaction Status Date / Time amoxicillin [Amoxicillin] Allergy Mild HIVES Verified 08/05/23 12:59 amitriptyline Allergy Unknown increase Verified 08/05/23 12:59 IOC sumatriptan Allergy Unknown Unknown Verified 08/05/23 12:59 Review of Systems Review of Systems: Yes all other systems are reviewed and are negative PMFSH Past Medical History Attestation statement: The following information was validated with the patient. Source: old records reviewed Medical History Rheumatoid arthritis Counseling for control, emergency contraceptive prescription Screen for sexually transmitted diseases Well woman exam Folliculitis Rash of foot Near syncope Annual physical exam Obesity (BMI 30-39.9) Migraine Juvenile rheumatoid arthritis Glaucoma Asthma Cervical dysplasia Generalized anxiety disorder Surgical History History of glaucoma History of eye surgery History of bilateral cataract extraction Family History Family History Father Substance abuse Mother No problems noted. Maternal Uncle FH: testicular cancer Maternal Grandfather Myocardial infarct Maternal Grandmother CVA (cerebral vascular accident) Other Mental health disorder Social History Social History (Updated 08/05/23 @ 13:20 by Javed Lopez MD) Household Members Other:: dad Housing: House Alcohol intake: current Alcohol intake frequency: a few times a week Alcohol type: hard liquor Patient Tobacco Use Status: Former Tobacco user Tobacco use type: Cigarette Years Smoked: 2018 e-Cigarette/Vaping Use: Never Used Second Hand Smoke Exposure: Yes Substance Use Type: Marijuana service: No Current occupational status: unemployed Sexual orientation: Straight/Heterosexual Gender identity: Female Cognitive needs: No Hearing needs: No Vision needs: Yes (glasses) Physical Exam Vital Signs: Vital Signs: Last Vital Signs Temp 99.0 F 10/19/23 20:46 Pulse 84 10/19/23 20:46 Resp 18 10/19/23 20:46 BP 134/75 10/19/23 20:46 Pulse Ox 99 10/19/23 20:46 O2 Del Method Room Air 10/19/23 20:46 BMI result Body Mass Index 20.6 Appearance: Alert.?Oriented to person, place and time. No acute distress.?Normal affect. Eyes: Pupils equal, round and reactive to light.? ENT: Pharynx normal.??Right TM erythematous bulging opacity., no foreign body identified in the ear canal. No active drainage. Left TM normal Neck: Normal inspection.? Neck supple.?? CVS: Heart sounds normal. Normal heart rate and rhythm.? Pulses normal.?? Respiratory: No respiratory distress.? Lung sounds clear to auscultation bilaterally?? Abdomen: Soft and non-tender. Normoactive bowel sounds. Skin: Skin warm and dry.? Normal skin color.? Extremities: No lower extremity edema.? Neuro: Moves all extremities spontaneously. Sensation intact bilaterally. Ambulates with normal steady gait. Medical Decision Making Medical Decision Making [facility] Narrative: Patient is a 33-year-old presents emergency department for evaluation of for ear pain as per HPI. Physical examination is consistent with acute otitis media without spontaneous rupture of the tympanic membrane. Examination is not consistent with a foreign body, otitis externa. No evidence of mastoiditis. Received initial dose of antibiotics while in the emergency department. Sent remainder to local pharmacy, patient was advised that her pharmacy due to holiday will not be open until Friday10/21/2023, we discussed alternatively sending the prescription to a local pharmacy that will be open tomorrow, she unfortunately does not have transportation to this pharmacy. Advised not to insert anything into the ear canal is increased risk of rupture to the membrane. All questions were answered. Stable for discharge. Differential Diagnosis Differential Diagnoses: The differential diagnosis associated with the presentation includes (As noted above) Admission/Observation Consideration of admission/observation: Escalation of care including admission/observation considered (As per narrative above) External Record Review External record reviewed: Outpatient record Prescription Management I considered prescription management with: Antibiotic Discharge Plan Discharge Clinical Impression: Acute otitis media Qualifiers: Laterality: right Recurrence: non-recurrent Spontaneous tympanic membrane rupture: without spontaneous rupture Patient Disposition: Home, Self-Care Instructions: Ear Infection (ED) Additional Instructions: Do not insert anything into the ear such as Q-tips as this may increase the risk of rupture to your ear drum. Complete the entire course of antibiotics as prescribed. Follow-up with your primary care provider Return back to the emergency department any new or worsening symptoms or concerns. Prescriptions: New cefuroxime axetil 500 mg tablet 500 mg PO BID Qty: 19 0RF No Action albuterol sulfate [ProAir HFA] 90 mcg/actuation HFA aerosol inhaler 2 puff inhalation QID PRN (Reason: shortness of breath or wheezing) Qty: 8.5 0RF loteprednol etabonate [Lotemax] 0.5 % drops,suspension 1 drp ophthalmic (eye) BID Patient Comments: left Humira 40 mg/0.8 mL syringe kit See Rx Instructions subcut .COMPLEX Rx Instructions: inject one - 40 mg/0.8 mL syringe every 2 weeks subcut dorzolamide-timolol [Cosopt] 22.3-6.8 mg/mL drops 1 drp ophthalmic (eye) BID Rx Instructions: Dr. Galloway and [facility] acetazolamide 500 mg capsule, extended release 500 mg PO Q12H Referrals: Tish Velasco FNP [Primary Care Provider] -
[2023-10-19] MEDS: cefuroxime axetiL 500 MG TABLET PO (21:03)
== END 2023-10-19 21:07 | disposition home or self-care (01) ==
PROVIDERS: Emergency Provider Emergency Medicine; PCP Nurse Practitioner Family
DX: H66.91 Otitis media, unspecified, right ear (principal)
CPT/HCPCS: 99282; 99283

== ENCOUNTER 2023-11-05 15:12 | Outpatient (REF) | payer OTHER, SELFPAY ==
[2023-11-05 15:27] LABS: MANUAL DIFF FLAG NO
[2023-11-05 15:35] LABS: Basophils Absolute Auto 0.1 X10*3/uL (0.0-0.2); Eosinophils Absolute Auto 0.2 X10*3/uL (0.0-0.4); Eosinophils Percent Auto 1.9 % (0-4); Hematocrit 41.2 % (37.0-47.0); Hemoglobin 13.5 g/dl (12.0-16.0); Imm Gran Abs Auto 0.02 X10*3/uL (0.00-0.03); Imm Gran Pct Auto 0.2 % (0.0-0.4); Lymphocytes Absolute Auto 2.2 X10*3/uL (1.2-4.9); Lymphocytes Percent Auto 26.7 % (20-40); Mean Corpuscular HGB Conc 32.8 g/dl (31.0-35.0); Mean Corpuscular Hemoglobin 29.7 pg (27.0-33.0); Mean Corpuscular Volume 90.7 fL (80.0-98.0); Mean Platelet Volume 10.2 fL (9.4-12.3); Monocytes Absolute Auto 0.6 X10*3/uL (0.1-1.2); Monocytes Percent Auto 7.5 % (2-11); Neutrophils Absolute Auto 5.2 x10*3/uL (2.0-8.3); Neutrophils Percent Auto 62.7 % (45-73); Platelet Count 206 X10*3/uL (160-400); Red Blood Count 4.54 X10*6/uL (4.20-5.50); Red Cell Distribution Width 11.9 % (11.0-16.0); White Blood Count 8.3 X10*3/uL (4.8-10.8)
[2023-11-05 16:12] LABS: Erythrocyte Sedimentation Rate 8 MM/HR (0-20)
[2023-11-05 16:26] LABS: Alanine Aminotransferase 20 U/L (0-31); Albumin Level 4.3 g/dL (3.5-5.0); Alkaline Phosphatase 30 U/L (39-117); Anion Gap 13 (12-20); Aspartate Amino Transferase 16 U/L (5-31); Bilirubin Total 1.1 mg/dL (0.0-1.0); Blood Urea Nitrogen 12 mg/dL (9-16); C Reactive Protein < 0.10 mg/dL (< or = 0.50); Carbon Dioxide 20 mmol/L (22-29); Chloride 110 mmol/L (96-108); Cholesterol 150 mg/dL (<200); Estimated Glomerular Filt Rate > 60; Glucose Random 86 mg/dL (60-115); HDL Cholesterol 49 mg/dL (>40); LDL Cholesterol Calculated 88 mg/dL (<100); Magnesium 2.2 mg/dL (1.6-2.6); Potassium 3.5 mmol/L (3.3-5.1); Sodium 139 mmol/L (135-145); Total Protein 7.7 g/dL (6.5-8.0); Triglycerides 65 mg/dL (<150)
[2023-11-05 16:43] LABS: Free T4 (Free Thyroxine) 0.92 ng/dL (0.71-1.85); Thyroid Stimulating Hormone 1.03 uIU/mL (0.32-4.0); Vitamin D 25-OH Total 20.4 ng/mL (>30)
[2023-11-05 16:51] LABS: Folate 10.8 ng/mL (> or = 4.0); Vitamin B12 284 pg/mL (200-900)
== END 2023-11-05 15:13 | disposition home or self-care (01) ==
LOC: HO.LAB 15:12
PROVIDERS: PCP Internal Medicine; Visit Provider Internal Medicine
DX: M08.00 Unspecified juvenile rheumatoid arthritis of unspecified site (principal); E78.00 Pure hypercholesterolemia, unspecified
CPT/HCPCS: 36415; 80053; 80061; 82306; 82607; 82746; 83735; 84100; 84439; 84443; 85025; 85652; 86140

== ENCOUNTER 2023-12-01 13:41 | Outpatient (AMB) | payer OTHER, SELFPAY ==
--- NOTE | 2023-12-01 13:48 | MHC.OFFVIS ---
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 No complaints. , the patient would like STD screen Last Pap was negative in 11/16 [facility] Medical History Rheumatoid arthritis Counseling for control, emergency contraceptive prescription Screen for sexually transmitted diseases Well woman exam Folliculitis Rash of foot Near syncope Annual physical exam Obesity (BMI 30-39.9) Migraine Juvenile rheumatoid arthritis Glaucoma Asthma Cervical dysplasia Generalized anxiety disorder Surgical History History of glaucoma History of eye surgery History of bilateral cataract extraction Family History Father Substance abuse Mother No problems noted. Maternal Uncle FH: testicular cancer Maternal Grandfather Myocardial infarct Maternal Grandmother CVA (cerebral vascular accident) Other Mental health disorder Social History Household Members Other:: dad Housing: House Alcohol intake: current Alcohol intake frequency: a few times a week Alcohol type: hard liquor Patient Tobacco Use Status: Current someday Tobacco user Tobacco use type: Cigarette Years Smoked: 2019 e-Cigarette/Vaping Use: Never Used Second Hand Smoke Exposure: Yes Substance Use Type: Marijuana service: No Current occupational status: unemployed Sexual orientation: Straight/Heterosexual Gender identity: Female Cognitive needs: No Hearing needs: No Vision needs: Yes (glasses) Female Reproductive History Menstrual Age of Menarche: 12 Date of last menstrual period: 11/13/23 control method: none Total pregnancies: 3 Number of Living Children: 0 Ab induced: 1 Ab spontaneous: 2 Date of last pap smear: 11/16/20 (neg pap and hpv) Review of Systems Const All systems reviewed & are unremarkable except as noted in HPI and below Card Reports as per HPI Resp Reports as per HPI GI Reports as per HPI and Reports no additional complaints Reports as per HPI Physical Exam Const General: cooperative, healthy appearing and comfortable Chest Chest palpation & inspection: normal inspection of the chest and normal palpation of entire chest wall Breast/axilla inspection: normal inspection of the breasts and normal inspection of the axillae Breast/axilla palpation: normal palpation of the breasts, normal palpation of the axillae and no axillary lymphadenopathy Resp Effort & Inspection: normal respiratory effort Auscultation: clear to auscultation bilaterally Percussion: percussion normal Cardio Palpation: normal PMI Rate: regular rate Rhythm: regular rhythm Heart sounds: no murmurs and no rubs Peripheral pulses: Peripheral pulses 2+ throughout GI Inspection: Yes normal to inspection Palpation (GI): Soft to palpation, nontender, no guarding, not rigid and No hepatosplenomegaly present Percussion: Yes normal to percussion Auscultation: normal bowel sounds Rectal Exam - Female: deferred General: Yes bladder normal to palpation External Female Exam: No lesion Speculum Exam - Vagina: normal appearance of the vagina, normal palpation, normal vaginal discharge and not erythematous Speculum Exam - Cervix: normal appearance of the cervix and normal palpation Bimanual exam- vagina & uterus: normal bimanual exam, normal palpation, uterine size normal, bladder normal to palpation, consistency normal and normal palpation Bimanual Exam- Adnexa, other: normal adnexae, no masses and no tenderness Results AMB Test Urine AMB Test Urine Negative Last Edit by SHUBHAM Tabares on 12/01/23 13:57 Assessment & Plan Assessment & Plan (1) Well woman exam: Code(s): Z01.419 - Encounter for gynecological examination (general) (routine) without abnormal findings Plan: Cotesting done. Counseled the patient about the recommended dietary allowance of 1000 mg of Calcium & 600 IU of vitamin D. The patient was instructed to perform monthly self-breast exams and to schedule an annual exam in a year; All questions answered and the patient verbalized understanding. Instructed the patient to schedule annual exam in a year (2) Screen for STD (sexually transmitted disease): Code(s): Z11.3 - Encounter for screening for infections with a predominantly sexual mode of transmission Plan: STD screening tests done includes: BV panel for trichomonas, GC/CT will send patient for serology std screening for HIV, RPR, Hep b s Ag, HepC Ab. Instructions given the patient to schedule a follow-up appointment for repeat serology screen in 6 months for possible false negatives. Orders: Orders Hepatitis B Surface Antigen Today Z20.2 - Contact with and (suspected) exposure to infections with a predominantly sexual mode of transmission AMB HCG Urine Test Today Z32.02 - Encounter for test, result negative HIV Ab/Ag Today Z20.2 - Contact with and (suspected) exposure to infections with a predominantly sexual mode of transmission Syphilis Screen Today Z20.2 - Contact with and (suspected) exposure to infections with a predominantly sexual mode of transmission Hepatitis C Antibody Today Z20.2 - Contact with and (suspected) exposure to infections with a predominantly sexual mode of transmission Coding Level of Care Code Est Pt Prev Care 18-39y(42600) Diagnoses Well woman exam Z01.419 Screen for STD (sexually transmitted disease) Z11.3
[2023-12-01 13:55] VITALS: BP 108/62
== END 2023-12-01 14:14 | disposition home or self-care (01) ==
PROVIDERS: Visit Provider Obstetrics & Gynecology
DX: Z01.419 Encounter for gynecological examination (general) (routine) without abnormal findings (principal); Z11.3 Encounter for screening for infections with a predominantly sexual mode of transmission; Z32.02 Encounter for pregnancy test, result negative
CPT/HCPCS: 99395

== ENCOUNTER 2023-12-01 13:41 | Outpatient (REF) | payer OTHER, SELFPAY ==
[2023-12-02 07:28] LABS: Syphilis Screen Nonreactive (Nonreactive)
[2023-12-02 07:42] LABS: HBsAGNum1 2.43 S/CO (0.00-0.99); HIV AB/AG Nonreactive (Nonreactive); HIV Num 1 0.07 S/CO (0.00-0.99); ~HepC Num1 0.11 S/CO (0.00-0.79); ~Hepatitis C Antibody Nonreactive (Nonreactive)
[2023-12-02 09:06] LABS: HBsAGNum2 Nonreactive; HBsAGNum3 Nonreactive; Hepatitis B Surface Antigen NEGATIVE (Negative)
[2023-12-02 09:37] LABS: CT PCR NOT DETECTED (Not Detect.); NG PCR NOT DETECTED (Not Detect.)
[2023-12-02 10:07] LABS: BV Int Neg Control Negative (Negative); BV Int Pos Control Positive (Positive)
[2023-12-04 04:23] LABS: HPV mRNA E6/E7 rflx Not Detected (Not Detected)
== END 2023-12-01 13:42 | disposition home or self-care (01) ==
LOC: HO.LAB 13:41
PROVIDERS: PCP Internal Medicine; Visit Provider Obstetrics & Gynecology
DX: Z01.419 Encounter for gynecological examination (general) (routine) without abnormal findings (principal); Z11.3 Encounter for screening for infections with a predominantly sexual mode of transmission; Z20.2 Contact with and (suspected) exposure to infections with a predominantly sexual mode of transmission
CPT/HCPCS: 0353U; 81025; 86780; 86803; 87340; 87389; 87480; 87510; 87624; 87660; 88142

== ENCOUNTER 2024-07-30 10:00 | Outpatient (RCR) | payer OTHER, SELFPAY | END 2024-08-31 10:25 | disposition home or self-care (01) | LOC: HO.PT 10:00 | PROVIDERS: PCP Internal Medicine; Visit Provider Internal Medicine Rheumatology | DX: M54.50 Low back pain, unspecified (principal); M77.9 Enthesopathy, unspecified | CPT/HCPCS: 97110; 97140; 97161 ==

== ENCOUNTER 2024-08-09 12:32 | Outpatient (AMB) | payer OTHER, SELFPAY ==
--- NOTE | 2024-08-09 12:35 | MHC.PC.OV ---
Vital Signs 08/09/24 12:36 Height 5 ft 6 in Weight 151 lb BMI 24.4 BP 100/72 Blood Pressure Location Lt brachial Position Sitting Intake Visit Reasons: Annual Exam Intake Note: Patient is here today for a physical. Pt decline flu shot today. Geodetic Surveyor Technologist Required: No Interactive Video Technician: Not Required per policy Accompanied by: Self / Same As Patient Allergies amoxicillin [Amoxicillin] Allergy (Mild, Verified 08/09/24 12:36) HIVES amitriptyline Allergy (Unknown, Verified 08/09/24 12:36) increase IOC sumatriptan Allergy (Unknown, Verified 08/09/24 12:36) Unknown Medication List - Last Reconciled 08/09/24 by Javed Lopez MD acetazolamide ER 500 mg PO Q12H adalimumab (Humira) inject one - 40 mg/0.8 mL syringe every 2 weeks subcut dorzolamide-timolol 22.3-6.8 mg/mL (Cosopt) 1 drp ophthalmic (eye) BID loteprednol etabonate 0.5% (Lotemax) 1 drp ophthalmic (eye) BID Tobacco use date assessed: 08/09/24 Dental Screening Dental Screen Date: 08/09/24 Did you have a dental visit in the last 12 months?: No Did you have a dental problem in the last 6 months where you did not have access to dental care?: No Was dental information given to patient?: No HPI Annual Exam HPI Details 34-year-old female with juvenile rheumatoid arthritis asthma generalized anxiety disorder coming in for physical exam last seen in 08/15/2023. Patient is being followed up by the arthritis treatment center on Humira injections every other week complains of low back pain left and left ankle pain. Has been advised physical therapy 2 weeks ago dizzy, PFSH Medical History Rheumatoid arthritis Counseling for control, emergency contraceptive prescription Screen for sexually transmitted diseases Well woman exam Folliculitis Rash of foot Near syncope Annual physical exam Obesity (BMI 30-39.9) Migraine Juvenile rheumatoid arthritis Glaucoma Asthma Cervical dysplasia Generalized anxiety disorder Surgical History History of glaucoma History of eye surgery History of bilateral cataract extraction Family History (Updated 08/09/24 @ 13:03 by Javed Lopez MD) Father Substance abuse Mother Multiple sclerosis Maternal Uncle FH: testicular cancer Maternal Grandfather Myocardial infarct Maternal Grandmother CVA (cerebral vascular accident) Other Mental health disorder Social History (Updated 08/09/24 @ 13:04 by Javed Lopez MD) Household Members Other:: dad Housing: House Alcohol intake: current Alcohol intake frequency: a few times a week Alcohol type: hard liquor Comment: once a month 2 drink twisted tea Patient Tobacco Use Status: Current someday Tobacco user Tobacco use type: Cigarette Cigarette Packs Per Day: 0.5 Cigarettes Per Day: 10 Years Smoked: 2019, 5 cigarettes a day(08/09/2024) e-Cigarette/Vaping Use: Never Used Second Hand Smoke Exposure: Yes Substance Use Type: Marijuana service: No Current occupational status: unemployed Sexual orientation: Straight/Heterosexual Gender identity: Female Cognitive needs: No Hearing needs: No Vision needs: Yes (glasses) Female Reproductive History Menstrual Age of Menarche: 12 Questionnaire PHQ-9 Over the last 2 weeks, how often have you been bothered by any of the following problems? 1. Little interest or pleasure in doing things: several days 2. Feeling down, depressed, or hopeless: several days 3. Trouble falling or staying asleep, or sleeping too much: several days 4. Feeling tired or having little energy: several days 5. Poor appetite or overeating: several days 6. Feeling bad about yourself - or that you are a failure or have let yourself or your family down: several days 7. Trouble concentrating on things, such as reading the newspaper or watching television: several days 8. Moving or speaking so slowly that other people could have noticed. Or the opposite - being so fidgety or restless that you have been moving around a lot more than usual: not at all 9. Thoughts that you would be better off or of hurting yourself in some way: not at all Total score: 7 Depression Screening Interpretation: Positive Depression Screening Done: Yes Source: Developed by Drs. Claus Son, Beatriz Wilson, Wander Carvajal and colleagues, with an educational fanta from [employer]. Thrive Questionnaire Date Thrive assessed: 08/09/24 I am a: Patient What is your living situation today?: I have a steady place to live Within the past 12 months, did the food you bought not last and you didn't have the money to get more?: Never true Within the past 12 months, did you worry whether your food would run out before you got money to buy more?: Never true Do you have trouble paying for medicines?: No Do you have trouble getting transportation to medical appointments?: No Do you have trouble paying your heating and electricity bill?: No Do you have trouble taking care of your child, family member or friend?: No Do you have trouble with day-to-day activities such as bathing, preparing meals, shopping, managing finances, etc.?: No Are you currently unemployed and looking for a job?: No Are you interested in more education?: No Please select the resources that you would like help with: None Currently or been in a relationship where the following occur: No concerns reported THRIVE Score: 0 AUDIT C Alcohol Use Questionnaire (AUDIT-C) 1. How often do you have a drink containing alcohol?: Monthly or less 2. How many drinks containing alcohol do you have on a typical day when you are drinking?: 1 or 2 3. How often do you have six or more drinks on one occasion?: Never Total Score: 1 MANNY-7 AMB Questionnaire MANNY-7 Date MANNY - 7 assessed: 08/09/24 Feeling nervous, anxious, or on edge: 1 = Several days Not being able to stop or control worryin = Several days Worrying too much about different things: 1 = Several days Trouble relaxin = Several days Being so restless that it is hard to sit still: 1 = Several days Becoming easily annoyed or irritable: 1 = Several days Feeling afraid as if something awful might happen: 1 = Several days Total MANNY-7 score (0-4 normal; 5-9 mild; 10-14 moderate; 15-21 severe): 7 Source: Developed by Drs. Claus Son, Beatriz Wilson, Wander Carvajal and colleagues, with an educational fanta from [email or web address]. Review of Systems Const Denies poor appetite and Denies weakness Eyes Denies no additional complaints ENT Reports Normal hearing present, Denies dizziness, Denies nasal congestion, Denies tinnitus and Denies sore throat Card Denies chest pain, Denies syncope, Denies rapid heart rate and Denies dyspnea Resp Denies cough and Denies dyspnea GI Denies change in stool character, Reports constipation, Denies diarrhea, Denies nausea and Denies vomiting Denies urinary frequency, Denies difficulty voiding and Denies dysuria Neuro Reports Normal hearing present, Denies confusion, Denies dizziness, Denies syncope and Denies weakness Psych Denies confusion Physical exam (Primary Care) Vital Signs: Last Vital Signs BP 100/72 08/09/24 12:36 BMI result Body Mass Index 24.4 Tobacco/Smoking Status: Tobacco use Status Tobacco use date assessed 08/09/24 08/09/24 12:41 Patient Tobacco Use Status Current someday Tobacco 08/09/24 12:41 Tobacco use type Cigarette 08/09/24 12:41 e-Cigarette/Vaping Use Never Used 08/09/24 12:41 PHQ-9: PHQ-9 Score PHQ-9: Total score 7 08/09/24 12:41 Depression Screening Interpretation: Positive Thrive Assessment: Date of Thrive Assessment Date Thrive assessed 08/09/24 08/09/24 12:41 Currently or been in a relationship where the following occur: No concerns reported Const General: No confusion Orientation/consciousness: No confusion HENMT Head: Yes normocephalic Ears: external ears normal and TM's normal bilaterally Face and sinus: Yes normal facial exam Mouth: moist mucous membranes Throat: Yes tonsils normal Eyes Conjunctivae: conjunctivae normal Pupils: Equal, round and reactive pupils present and Pupil accommodation reflex normal Direct Ophthalmoscopy: normal light reflex Neck Neck: No lymphadenopathy Thyroid: Thyroid normal Chest Chest palpation & inspection: normal inspection of the chest Resp Effort & Inspection: normal respiratory effort and no audible wheezes Auscultation: clear to auscultation bilaterally, no crackles, no wheezes and lung sounds not diminished Cardio Rate: regular rate Rhythm: regular rhythm Peripheral pulses: radial pulses present and dorsalis pedis present GI Palpation (GI): no masses Auscultation: normal bowel sounds and normoactive bowel sounds Rectal Exam - Female: deferred Skin General skin exam: no rashes or lesions noted Rashes: no rashes Neuro General: No confusion Cranial nerves: Yes Equal, round and reactive pupils present and Yes Normal hearing present Cognition (Neuro): normal cognition Gait exam (Neuro): Normal gait present Motor exam (neuro): 5/5 motor strength present throughout Deep tendon reflexes (DTR's): Right brachioradialis reflex intensity grade: 2+, Left brachioradialis reflex intensity grade: 2+, Right patellar reflex intensity grade: 2+ and Left patellar reflex intensity grade: 2+ Extrem General: No edema Coding Level of Care Code Est Pt Prev Care 18-39y(88083) Diagnoses Annual physical exam Z00.00 Juvenile rheumatoid arthritis M08.00 Asthma J45.909 Generalized anxiety disorder F41.1 Hip pain, left M25.552 Assessment & Plan Assessment & Plan (1) Annual physical exam: Code(s): Z00.00 - Encounter for general adult medical examination without abnormal findings Category: Medical Plan: Patient is advised to eat healthy, keep well hydrated, keep active and have adequate sleep. (2) Juvenile rheumatoid arthritis: Comment: Dr Wilson Code(s): M08.00 - Unspecified juvenile rheumatoid arthritis of unspecified site Category: Medical Plan: Continue to follow-up with arthritis treatment center on [facility] every other week (3) Asthma: Code(s): J45.909 - Unspecified asthma, uncomplicated Category: Medical Plan: Stable (4) Generalized anxiety disorder: Comment: [facility] counselling Code(s): F41.1 - Generalized anxiety disorder Category: Medical Plan: Continue with counseling (5) Hip pain, left: Code(s): M25.552 - Pain in left hip Category: Medical Plan: xr requested with sacroiliac and L hip area Orders: Orders XR hip LT min 2V Today M25.552 - Pain in left hip XR sacroiliac joint min 3V Today M25.552 - Pain in left hip
[2024-08-09 12:36] VITALS: BP 100/72; BMI 24.4
== END 2024-08-09 13:17 | disposition home or self-care (01) ==
PROVIDERS: PCP Internal Medicine; Visit Provider Internal Medicine
DX: Z00.00 Encounter for general adult medical examination without abnormal findings (principal); M08.00 Unspecified juvenile rheumatoid arthritis of unspecified site; J45.909 Unspecified asthma, uncomplicated; F41.1 Generalized anxiety disorder; M25.552 Pain in left hip

== ENCOUNTER → 2024-08-09 12:32 | Outpatient (BNVA) | payer OTHER, SELFPAY | PROVIDERS: PCP Internal Medicine; Visit Provider Internal Medicine ==

== ENCOUNTER 2024-08-10 13:01 | Outpatient (REF) | payer OTHER, SELFPAY ==
--- NOTE | ~2024-08-10 | XR_ITS ---
EXAMINATION: XR HIP LEFT 2 VIEWS CLINICAL INFORMATION: Pain in left hip M25.552. COMPARISON: None TECHNIQUE: Two views of the left hip. FINDINGS: No fracture. Alignment is anatomic. Hip joint space is maintained. Soft tissues are unremarkable. XR/XR hip LT min 2V IMPRESSION: Normal left hip. Electronically signed by: Syeda Hill MD 10/06/2024 03:29 PM EST RP
--- NOTE | ~2024-08-10 | XR_ITS ---
EXAMINATION: XR SACROILIAC JOINTS 3 VIEWS CLINICAL INFORMATION: Pain in left hip M25.552. COMPARISON: CT Right femur without IV contrast 02/22/2023 TECHNIQUE: 3 views of the sacroiliac joints. FINDINGS: Bones and soft tissues are normal. No fracture. Alignment is anatomic. Sacroiliac joint spaces are well-maintained, however there is sclerosis of both the joints. 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 Electronically signed by: Syeda Hill MD 10/06/2024 06:45 PM ROBERT
== END 2024-08-10 13:02 | disposition home or self-care (01) ==
LOC: HO.XRAY 13:01
PROVIDERS: PCP Internal Medicine; Visit Provider Internal Medicine
DX: M25.552 Pain in left hip (principal)
CPT/HCPCS: 72202; 73502

== ENCOUNTER 2025-03-01 07:35 | Outpatient (REF) | payer OTHER, SELFPAY ==
[2025-03-01 16:32] LABS: CT PCR NOT DETECTED (Not Detect.); NG PCR NOT DETECTED (Not Detect.)
== END 2025-03-01 07:36 | disposition home or self-care (01) ==
LOC: HO.LAB 07:35
PROVIDERS: PCP Internal Medicine; Visit Provider Obstetrics & Gynecology
DX: Z01.419 Encounter for gynecological examination (general) (routine) without abnormal findings (principal); N94.10 Unspecified dyspareunia
CPT/HCPCS: 81025; 87491; 87591; 99459

== ENCOUNTER 2025-03-01 07:35 | Outpatient (AMB) | payer OTHER, SELFPAY ==
--- NOTE | 2025-03-01 07:38 | MHC.OFFVIS ---
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 Complaining of left-sided pain during intercourse no associated vaginal discharge, no urinary or GI symptoms no other complaints. Last Pap/HPV was negative in 12/20 [facility] Medical History (Updated 03/01/25 @ 07:55 by Ryland Jones MD) Well woman exam Rheumatoid arthritis Counseling for control, emergency contraceptive prescription Screen for sexually transmitted diseases Folliculitis Rash of foot Near syncope Annual physical exam Obesity (BMI 30-39.9) Migraine Juvenile rheumatoid arthritis Glaucoma Asthma Cervical dysplasia Generalized anxiety disorder Surgical History History of glaucoma History of eye surgery History of bilateral cataract extraction Family History Father Substance abuse Mother Multiple sclerosis Maternal Uncle FH: testicular cancer Maternal Grandfather Myocardial infarct Maternal Grandmother CVA (cerebral vascular accident) Other Mental health disorder Social History Household Members Other:: dad Housing: House Alcohol intake: current Alcohol intake frequency: a few times a week Alcohol type: hard liquor Comment: once a month 2 drink twisted tea Patient Tobacco Use Status: Current someday Tobacco user Tobacco use type: Cigarette Cigarette Packs Per Day: 0.5 Cigarettes Per Day: 10 Years Smoked: 2019, 5 cigarettes a day(08/09/2024) e-Cigarette/Vaping Use: Never Used Second Hand Smoke Exposure: Yes Substance Use Type: Marijuana service: No Current occupational status: unemployed Sexual orientation: Straight/Heterosexual Gender identity: Female Cognitive needs: No Hearing needs: No Vision needs: Yes (glasses) Female Reproductive History Menstrual Age of Menarche: 12 Date of last pap smear: 12/02/23 Review of Systems Const All systems reviewed & are unremarkable except as noted in HPI and below Card Reports as per HPI Resp Reports as per HPI GI Reports as per HPI and Reports no additional complaints Reports as per HPI Physical Exam Vital Signs: Last Vital Signs BP 118/66 03/01/25 07:40 BMI result Body Mass Index 28.7 Const General: cooperative, healthy appearing and comfortable Chest Chest palpation & inspection: normal inspection of the chest and normal palpation of entire chest wall Breast/axilla inspection: normal inspection of the breasts and normal inspection of the axillae Breast/axilla palpation: normal palpation of the breasts, normal palpation of the axillae and no axillary lymphadenopathy Resp Effort & Inspection: normal respiratory effort Auscultation: clear to auscultation bilaterally Percussion: percussion normal Cardio Palpation: normal PMI Rate: regular rate Rhythm: regular rhythm Heart sounds: no murmurs and no rubs Peripheral pulses: Peripheral pulses 2+ throughout GI Inspection: Yes normal to inspection Palpation (GI): Soft to palpation, nontender, no guarding, not rigid and No hepatosplenomegaly present Percussion: Yes normal to percussion Auscultation: normal bowel sounds Rectal Exam - Female: deferred General: Yes bladder normal to palpation External Female Exam: No lesion Speculum Exam - Vagina: normal appearance of the vagina, normal palpation, normal vaginal discharge and not erythematous Speculum Exam - Cervix: normal appearance of the cervix and normal palpation Bimanual exam- vagina & uterus: normal bimanual exam, normal palpation, uterine size normal, bladder normal to palpation, consistency normal and normal palpation Bimanual Exam- Adnexa, other: normal adnexae, no masses and no tenderness Assessment & Plan Assessment & Plan (1) Well woman exam: Code(s): Z01.419 - Encounter for gynecological examination (general) (routine) without abnormal findings Category: Medical Plan: Cotesting not indicated this year. Counseled the patient about the recommended dietary allowance of 1000 mg of Calcium & 600 IU of vitamin D. The patient was instructed to perform monthly self-breast exams and to schedule an annual exam in a year; All questions answered and the patient verbalized understanding. Instructed the patient to schedule annual exam in a year (2) Dyspareunia, female: Code(s): N94.10 - Unspecified dyspareunia Category: Medical Plan: Urine dip and test done in the office were both negative. GC and chlamydia taken and pelvic ultrasound ordered. Discussed with the patient the differential diagnosis of dyspareunia including but not limited to adnexal, uterine masses, pelvic infections (PID), GI the (Irritable bowel syndrome, diverticulitis, others), musculoskeletal, myofascial pain abdominal wall , adhesions, endometriosis, psychological and others causes. Will check results and treat accordingly. All questions answered, the patient verbalized understanding. Instructed the patient to schedule an ultrasound and a follow-up appointment in 2 weeks. All questions answered, the patient verbalized understanding and agreed with the plan. Orders: Orders AMB HCG Urine Test Today Z32.02 - Encounter for test, result negative AMB Urinalysis Dipstick Today N94.10 - Unspecified dyspareunia, Z01.419 - Encounter for gynecological examination (general) (routine) without abnormal findings CT NG by PCR Today N94.10 - Unspecified dyspareunia, Z01.419 - Encounter for gynecological examination (general) (routine) without abnormal findings Coding Level of Care Code Est Pt Prev Care 18-39y(06281) Diagnoses Well woman exam Z01.419 Dyspareunia, female N94.10
[2025-03-01 07:40] VITALS: BP 118/66; BMI 28.7
== END 2025-03-01 08:56 | disposition home or self-care (01) ==
LOC: HO.HWS 07:35
PROVIDERS: PCP Internal Medicine; Visit Provider Obstetrics & Gynecology
DX: Z01.419 Encounter for gynecological examination (general) (routine) without abnormal findings (principal); N94.10 Unspecified dyspareunia; Z32.02 Encounter for pregnancy test, result negative
CPT/HCPCS: 99395; 99459

== ENCOUNTER 2025-03-23 08:05 | Outpatient (REF) | payer OTHER, SELFPAY ==
--- NOTE | ~2025-03-23 | US_ITS ---
EXAMINATION: US FIRST TRIMESTER OB HISTORY: Z34.90 - Encounter for supervision of normal , unspecified TECHNIQUE: Endovaginal scanning was performed. FINDINGS: There is a single, live intrauterine . A 1.3 cm hypoechoic area adjacent to the gestational sac likely represents an implantation bleed. AUA = 5 weeks 6 days WEI(AUA) = 11/17/2025 LMP = 02/09/2025 GA(LMP) = 6 weeks 0 days WEI(LMP) = 11/16/2025 CRL = 0.22cm Yolk Sac: seen FHR = 103bpm Right ovary: The right ovary measures 1.7 x 1.8 x 1.4 cm and is unremarkable. Left ovary: The left ovary measures 2.8 x 2.3 x 1.8 cm and demonstrates a 1.4 x 1.2 x 1.4 cm hypoechoic area which likely represents the corpus luteum. Cul-de-sac: There is a small amount of free fluid in the cul-de-sac. US/US OB pelvic and transvaginal IMPRESSION: Single, live intrauterine of estimated gestational age 5 weeks, 6 days. Probable 1.3 cm implantation bleed adjacent to the gestational sac. Follow-up is recommended. Electronically signed by: Claus Albrecht MD 03/23/2025 11:55 AM EDT
[2025-03-23 08:45] LABS: HCG Quantitative 12212 mIU/mL
== END 2025-03-23 08:06 | disposition home or self-care (01) ==
LOC: HO.LAB 08:05
PROVIDERS: PCP Internal Medicine; Visit Provider Obstetrics & Gynecology
DX: Z34.90 Encounter for supervision of normal pregnancy, unspecified, unspecified trimester (principal)
CPT/HCPCS: 36415; 76801; 76817; 84702; 99212

== ENCOUNTER 2025-03-23 10:03 | Outpatient (AMB) | payer OTHER, SELFPAY ==
--- NOTE | 2025-03-23 10:05 | MHC.OFFVIS ---
Intake Visit Reasons: HCG follow up per Allergies amoxicillin [Amoxicillin] Allergy (Mild, Verified 03/23/25 10:06) HIVES amitriptyline Allergy (Unknown, Verified 03/23/25 10:06) increase IOC sumatriptan Allergy (Unknown, Verified 03/23/25 10:06) Unknown HPI Comments Details: Presenting with urine test. LMP on 02/09 making her by to date at 6 weeks of gestation. The patient had an office visit on 03/01 and a negative test, this was followed by a home positive test on 03/17 HCG done today was 12,212 The patient is having mild pelvic cramping no vaginal bleeding the patient is not on vitamin yet [facility] Medical History (Updated 03/23/25 @ 10:20 by Ryland Jones MD) Well woman exam Rheumatoid arthritis Counseling for control, emergency contraceptive prescription Screen for sexually transmitted diseases Folliculitis Rash of foot Near syncope Annual physical exam Obesity (BMI 30-39.9) Migraine Juvenile rheumatoid arthritis Glaucoma Asthma Cervical dysplasia Generalized anxiety disorder Surgical History History of glaucoma History of eye surgery History of bilateral cataract extraction Family History Father Substance abuse Mother Multiple sclerosis Maternal Uncle FH: testicular cancer Maternal Grandfather Myocardial infarct Maternal Grandmother CVA (cerebral vascular accident) Other Mental health disorder Social History Household Members Other:: dad Housing: House Alcohol intake: current Alcohol intake frequency: a few times a week Alcohol type: hard liquor Comment: once a month 2 drink twisted tea Patient Tobacco Use Status: Current someday Tobacco user Tobacco use type: Cigarette Cigarette Packs Per Day: 0.5 Cigarettes Per Day: 10 Years Smoked: 2019, 5 cigarettes a day(08/09/2024) e-Cigarette/Vaping Use: Never Used Second Hand Smoke Exposure: Yes Substance Use Type: Marijuana service: No Current occupational status: unemployed Sexual orientation: Straight/Heterosexual Gender identity: Female Cognitive needs: No Hearing needs: No Vision needs: Yes (glasses) Female Reproductive History Menstrual Age of Menarche: 12 Assessment & Plan Assessment & Plan (1) Early stage of : Code(s): Z34.90 - Encounter for supervision of normal , unspecified, unspecified trimester Category: Medical Plan: Ob ultrasound stat ordered showed the following: IMPRESSION: Single, live intrauterine of estimated gestational age 5 weeks, 6 days. Probable 1.3 cm implantation bleed adjacent to the gestational sac. Follow-up is recommended. Discussed with the patient Humira take AUB in all of the pros and cons, risks and benefits in addition to acetazolamide ER category C in , instructed the patient to call her her tomography technologist and podiatric foot and ankle specialist to discuss any potential alternatives. vitamin tablet p.o. q.d. The patient is not sure she wants to keep the or co for termination. Instructions given the patient to schedule a 2 week follow-up appointment, the patient is interested in care if she decided to keep the at [facility] and will call back if she is not able to have access to care. All questions answered, the patient verbalized understanding Orders: Orders US OB pelvic and transvaginal Today Z34.90 - Encounter for supervision of normal , unspecified, unspecified trimester Coding Level of Care Code Est Pt Level 3 (17731) Diagnoses Early stage of Z34.90
== END 2025-03-23 13:50 | disposition home or self-care (01) ==
LOC: HO.HWS 10:03
PROVIDERS: PCP Internal Medicine; Visit Provider Obstetrics & Gynecology
DX: Z34.90 Encounter for supervision of normal pregnancy, unspecified, unspecified trimester (principal)
CPT/HCPCS: 99213

== ENCOUNTER → 2025-03-23 10:51 | Outpatient (BNV) | payer OTHER, SELFPAY | PROVIDERS: PCP Internal Medicine; Visit Provider Radiology Diagnostic Radiology | DX: O20.8 Other hemorrhage in early pregnancy (principal); Z3A.01 Less than 8 weeks gestation of pregnancy | CPT/HCPCS: 76801; 76817 ==

== ENCOUNTER 2025-05-11 14:21 | Outpatient (REF) | payer OTHER, SELFPAY ==
--- NOTE | ~2025-05-11 | US_ITS ---
CLINICAL HISTORY: N94.10 - Unspecified dyspareunia Transabdominal and transvaginal pelvic ultrasound Comparison: None Findings: Uterus 6.6 x 4.3 x 3.8 cm. Endometrium 5 mm. No significant free fluid. Right ovary 2.5 x 1.6 x 1.6 cm. Left ovary 2.8 x 1.7 x 1.7 cm. No significant focal abnormality. Impression: No significant abnormality This document has been electronically signed by: Delmer Freeman MD on 05/11/2025 19:19:43
== END 2025-05-11 14:22 | disposition home or self-care (01) ==
LOC: HO.US 14:21
PROVIDERS: PCP Internal Medicine; Visit Provider Obstetrics & Gynecology
DX: N94.10 Unspecified dyspareunia (principal)
CPT/HCPCS: 76830; 76856

== ENCOUNTER → 2025-05-11 14:23 | Outpatient (BNV) | payer OTHER, SELFPAY | PROVIDERS: PCP Internal Medicine; Visit Provider Radiology Diagnostic Radiology | DX: N94.10 Unspecified dyspareunia (principal) | CPT/HCPCS: 76830; 76856 ==

== ENCOUNTER 2025-05-13 07:35 | Outpatient (AMB) | payer OTHER, SELFPAY ==
--- NOTE | 2025-05-13 07:35 | MHC.OFFVIS ---
Intake Visit Reasons: TV Ultra sound follow up Allergies amoxicillin (Amoxicillin) Allergy (Mild, Verified 03/23/25 10:06) HIVES amitriptyline Allergy (Unknown, Verified 03/23/25 10:06) increase IOC sumatriptan Allergy (Unknown, Verified 03/23/25 10:06) Unknown HPI Comments Details: The patient is schedule telehealth visit for follow-up regarding dyspareunia. The patient had termination of few weeks ago. Workup for dyspareunia included the following: Urine dip and test before last was negative GC/CT was negative Pelvic ultrasound showed the following: Findings: Uterus 6.6 x 4.3 x 3.8 cm. Endometrium 5 mm. No significant free fluid. Right ovary 2.5 x 1.6 x 1.6 cm. Left ovary 2.8 x 1.7 x 1.7 cm. No significant focal abnormality. Impression: No significant abnormality [facility] Medical History Well woman exam Rheumatoid arthritis Counseling for control, emergency contraceptive prescription Screen for sexually transmitted diseases Folliculitis Rash of foot Near syncope Annual physical exam Obesity (BMI 30-39.9) Migraine Juvenile rheumatoid arthritis Glaucoma Asthma Cervical dysplasia Generalized anxiety disorder Surgical History History of glaucoma History of eye surgery History of bilateral cataract extraction Family History Father Substance abuse Mother Multiple sclerosis Maternal Uncle FH: testicular cancer Maternal Grandfather Myocardial infarct Maternal Grandmother CVA (cerebral vascular accident) Other Mental health disorder Social History Household Members Other:: dad Housing: House Alcohol intake: current Alcohol intake frequency: a few times a week Alcohol type: hard liquor Comment: once a month 2 drink twisted tea Patient Tobacco Use Status: Current someday Tobacco user Tobacco use type: Cigarette Cigarette Packs Per Day: 0.5 Cigarettes Per Day: 10 Years Smoked: 2019, 5 cigarettes a day(08/09/2024) e-Cigarette/Vaping Use: Never Used Second Hand Smoke Exposure: Yes Substance Use Type: Marijuana service: No Current occupational status: unemployed Sexual orientation: Straight/Heterosexual Gender identity: Female Cognitive needs: No Hearing needs: No Vision needs: Yes (glasses) Female Reproductive History Menstrual Age of Menarche: 12 Review of Systems Const All systems reviewed & are unremarkable except as noted in HPI and below Reports as per HPI and Reports no additional complaints GI Reports no additional complaints Reports no additional complaints Telehealth Telehealth Telehealth Platform: Telephone Location of provider rendering services: practice address Location of patient: address on file Patient Identification confirmed using: Name, : Yes Telehealth method: video Patient verbally consented to treatment: Yes Patient verbally consented to billing insurance company: Yes Patient informed of any privacy concerns related to visit: Yes Minutes spent on Phone/Video with Pt.: 4 Assessment & Plan Assessment & Plan (1) Dyspareunia, female: Code(s): N94.10 - Unspecified dyspareunia Category: Medical Plan: Discussed with the patient the results of the workup done including negative GC/chlamydia, urine dip, urine test and pelvic ultrasound. Differential diagnosis of ecommerce marketing specialist causes that have not be ruled out yet include but not limited to endometriosis, pelvic adhesions , or others. Recommended for the patient to see her PCP for further workup for non ecommerce marketing specialist causes; if the all the results are negative and the patient's pelvic pain is persistent, instructions given to patient to call back for further testing. Meanwhile, instructions were given the patient to go to emergency room or call in case of fever above 100.4, heavy vaginal bleeding, persistence or worsening of her dyspareunia. All questions answered, the patient verbalized understanding. I spent a total of 20 minutes reviewing the chart, talking to the patient via video and documenting in the medical record. Coding Level of Care Code Tele Est Pt Level 3 (02691) Diagnoses Dyspareunia, female N94.10
== END 2025-05-13 08:50 | disposition home or self-care (01) ==
LOC: HO.HWS 07:35
PROVIDERS: PCP Internal Medicine; Visit Provider Obstetrics & Gynecology
DX: N94.10 Unspecified dyspareunia (principal)
CPT/HCPCS: 99213

== ENCOUNTER 2025-07-26 15:23 | Outpatient (REF) | payer OTHER, SELFPAY ==
[2025-07-27 13:52] LABS: Chlamydia pneumoniae PCR Not Detected (Not Detect.); Coronavirus 229E PCR Not Detected (Not Detect.); Coronavirus HKU1 PCR Not Detected (Not Detect.); Coronavirus NL63 PCR Not Detected (Not Detect.); Coronavirus OC43 PCR Not Detected (Not Detect.); RSV PCR Not Detected (Not Detect.); Rhino/Enterovirus PCR Not Detected (Not Detect.)
[2025-07-27 13:55] LABS: Influenza A H1 PCR Not Detected (Not Detect.); Influenza A H1-2009 PCR Not Detected (Not Detect.); Influenza A H3 PCR Not Detected (Not Detect.); SARS-CoV-2 PCR Not Detected (Not Detect.)
== END 2025-07-26 15:24 | disposition home or self-care (01) ==
LOC: HO.LNP 15:23
PROVIDERS: PCP Internal Medicine; Visit Provider Physician Assistant Medical
DX: J98.8 Other specified respiratory disorders (principal); J06.9 Acute upper respiratory infection, unspecified; R59.1 Generalized enlarged lymph nodes; F17.210 Nicotine dependence, cigarettes, uncomplicated; R50.9 Fever, unspecified; Z32.02 Encounter for pregnancy test, result negative
CPT/HCPCS: 87633; 87880; 99212

== ENCOUNTER 2025-07-26 15:23 | Outpatient (AMB) | payer OTHER, SELFPAY ==
[2025-07-26 15:27] VITALS: BP 134/88; PULSE 76; TEMP 36.9; O2SAT 96; BMI 29.9
--- NOTE | 2025-07-26 15:27 | MHC.OFFWIV ---
Intake Vital Signs 07/26/25 15:27 Height 5 ft 6 in Weight 185 lb BMI 29.9 BP 134/88 Blood Pressure Location Lt brachial Position Sitting Pulse 76 Pulse Source Pulse Oximeter Temp 98.5 F Temp Source Oral Pulse Oximetry (%) 96 Oxygen Delivery Method Room Air Intake Visit Reasons: EP swollen lymph nodes ,fever, chills, Intake Note: pt presents with right neck lymph node swelling, facial swelling, right earlobe swelling, fever chills- s/s began yesterday morning Patient Tobacco Use Status: Current someday Tobacco user Allergies amoxicillin (Amoxicillin) Allergy (Mild, Verified 07/26/25 15:34) HIVES amitriptyline Allergy (Unknown, Verified 07/26/25 15:34) increase IOC sumatriptan Allergy (Unknown, Verified 07/26/25 15:34) Unknown Do you need a note to return to daycare/school/sports/work: Yes HPI HPI Comments History of Present Illness Details History of Present Illness - The patient is a 35-year-old female presenting with symptoms of congestion and lymphadenopathy. - She reports a two-week history of illness, with recent exacerbation of symptoms including neck gland swelling, ear pain, and facial swelling. - She experiences headaches, excessive sweating, and a mild cough, and has been using Tylenol for symptom relief. - The patient has a history of rheumatoid arthritis, which causes lymph node swelling during infections, and has had inconclusive lymph node biopsies in the past. - Due to glaucoma, she avoids certain sinus medications and is allergic to amoxicillin, previously using doxycycline and Z-Packs for treatment. - She denies fever, chills, CP, SOB, abd pain, n/v/d. - She denies dental pain. Physical Exam General: Cooperative, healthy appearing, comfortable, no acute distress and well developed Head: Normal to inspection Ears: Hearing grossly normal bilaterally. No tragus or mastoid tenderness noted. Auditory canals clear bilaterally. TM's normal, not bulging. No fluid noted. Nose: Normal external nose present. Moist mucosa. Turbinates normal bilaterally, not boggy. Face and sinus: Tenderness to palpation of the frontal and maxillary sinuses bilaterally. Neck: Normal visual inspection and Yes full ROM. Tonsillar and anterior cervical lymphadenoapthy noted on the right. Respiratory: Normal respiratory effort and able to speak in complete sentences. Clear to auscultation bilaterally. No w/r/r noted. Cardiovascular: Regular rate and rhythm. Normal S1 and S2. No m/r/g noted. GI: Normal to inspection. Soft to palpation and nontender, nondistended. No guarding noted. Skin: No rashes or lesions noted [facility] Medical History Well woman exam Rheumatoid arthritis Counseling for control, emergency contraceptive prescription Screen for sexually transmitted diseases Folliculitis Rash of foot Near syncope Annual physical exam Obesity (BMI 30-39.9) Migraine Juvenile rheumatoid arthritis Glaucoma Asthma Cervical dysplasia Generalized anxiety disorder Surgical History History of glaucoma History of eye surgery History of bilateral cataract extraction Family History Father Substance abuse Mother Multiple sclerosis Maternal Uncle FH: testicular cancer Maternal Grandfather Myocardial infarct Maternal Grandmother CVA (cerebral vascular accident) Other Mental health disorder Social History Household Members Other:: dad Housing: House Alcohol intake: current Alcohol intake frequency: a few times a week Alcohol type: hard liquor Comment: once a month 2 drink twisted tea Patient Tobacco Use Status: Current someday Tobacco user Tobacco use type: Cigarette Cigarette Packs Per Day: 0.5 Cigarettes Per Day: 10 Years Smoked: 2019, 5 cigarettes a day(08/09/2024) e-Cigarette/Vaping Use: Never Used Second Hand Smoke Exposure: Yes Substance Use Type: Marijuana service: No Current occupational status: unemployed Sexual orientation: Straight/Heterosexual Gender identity: Female Cognitive needs: No Hearing needs: No Vision needs: Yes (glasses) Female Reproductive History Menstrual Age of Menarche: 12 Review of Systems Const All systems reviewed & are unremarkable except as noted in HPI and below Physical Exam Vital Signs: Last Vital Signs Temp 98.5 F 07/26/25 15:27 Pulse 76 07/26/25 15:27 BP 134/88 07/26/25 15:27 Pulse Ox 96 07/26/25 15:27 Oxygen Delivery Method Room Air 07/26/25 15:27 BMI result Body Mass Index 29.9 Results AMB Rapid Strep AMB Rapid Strep Negative Last Edit by Kiara Montez MA on 07/26/25 15:58 Results Reviewed Results Reviewed: Laboratory Last Values Strep Scn Rapid [facility] Negative 07/26/25 15:38 Assessment & Plan Assessment & Plan (1) Congestion of upper airway: Code(s): J98.8 - Other specified respiratory disorders (2) Lymphadenopathy: Code(s): R59.1 - Generalized enlarged lymph nodes Plan Most likely viral illness vs covid vs flu vs sinusitis with a reactive lymphadenopathy rapid strep is negative plan - tylenol or motrin as needed - soniya order a resp panel - prednisone burst for 5 days - doxycycline 100 mg BID for 7 days - follow up with PCP Orders: [place] [facility] [place] J06.9 - Acute upper respiratory infection, unspecified AMB Rapid Strep Screen Today Z13.9 - Encounter for screening, unspecified Medications: New prednisone 40 mg (2 x 20 mg) PO DAILY 10 tabs 0RF 5 days doxycycline hyclate 100 mg PO BID 14 tabs 0RF Coding Level of Care Code Est Pt Level 3 (93038) Diagnoses Congestion of upper airway J98.8 Lymphadenopathy R59.1
== END 2025-07-26 16:40 | disposition home or self-care (01) ==
PROVIDERS: PCP Internal Medicine; Visit Provider Physician Assistant Medical
DX: J98.8 Other specified respiratory disorders (principal); R59.1 Generalized enlarged lymph nodes; Z13.9 Encounter for screening, unspecified

== ENCOUNTER 2025-08-15 14:54 | Outpatient (AMB) | payer OTHER, SELFPAY ==
--- NOTE | 2025-08-15 15:36 | AM.OFFWIN_ITS ---
Intake Vital Signs 08/15/25 15:46 Height 5 ft 6 in Weight 184 lb BMI 29.7 BP 128/95 H Blood Pressure Location Rt brachial Position Sitting Pulse 56 Pulse Source Pulse Oximeter Temp 98.5 F Temp Source Oral Pulse Oximetry (%) 99 Intake Visit Reasons: EP-sob, cough, nausea [phone] Intake Note: Cough, shortness of breath and filled lung with secretion. Patient Tobacco Use Status: Current someday Tobacco user Allergies amoxicillin (Amoxicillin) Allergy (Mild, Verified 08/15/25 15:40) HIVES amitriptyline Allergy (Unknown, Verified 08/15/25 15:40) increase IOC sumatriptan Allergy (Unknown, Verified 08/15/25 15:40) Unknown Do you need a note to return to daycare/school/sports/work: Yes HPI HPI Comments History of Present Illness Details History - The patient is a 35-year-old female pr esenting with persistent cough, congestion, and shortness of breath following a recent viral infection. - Two weeks ago, she was treated for sin usitis with medications and steroids, which resolved facial and lymph node swelling. - She subsequently developed a severe co ugh and congestion, followed by vomiting, chills, and headache lasting until Friday. - The cough persists, worsening when lyi ng down, with associated shortness of breath and dizziness upon exertion. - A respiratory panel was negative for c ommon viral infections in Jun when she was last seen. - She has a history of asthma exacerbati ons during illness, managed with inhalers and antibiotics. - She has experienced walking pneumonia in the past but not recently. - She fever, chills, CP, SOB, abd pain, n/v/d, or ear pain. Physical Exam General: Cooperative, healthy appearing, comfortable and no acute distress Orientation/consciousness: Patient oriented x3 Limitations: No limitations Head: Normal to inspection Ears: Hearing grossly normal bilaterally, external ears normal and TM's normal bilaterally Nose: Normal external nose present, normal nares present, and no nasal discharge present. Face and sinus: Sinuses nontender to palpation. Mouth: Normal oral and palatal mucosa present and moist mucous membranes noted. Throat: Tonsils normal. Uvula is midline. Posterior oropharynx with erythema and no exudates. Eyes: Appearance normal, both eyes and all related structures Neck: Normal visual inspection, full ROM. No lymphadenopathy noted. Respiratory: Clear to auscultation bilaterally. Normal respiratory effort, able to speak in complete sentences. No respiratory distress, not tachypneic, no tripod positioning and no use of accessory muscles. Cardiovascular: Regular rate and rhythm. Normal S1 and S2 Skin: No rashes or lesions noted Patient was informed and verbally consented to the use of an ambient scribe for clinic note documentation during this visit [facility] Medical History Well woman exam Rheumatoid arthritis Counseling for control, emergency contraceptive prescription Screen for sexually transmitted diseases Folliculitis Rash of foot Near syncope Annual physical exam Obesity (BMI 30-39.9) Migraine Juvenile rheumatoid arthritis Glaucoma Asthma Cervical dysplasia Generalized anxiety disorder Surgical History History of glaucoma History of eye surgery History of bilateral cataract extraction Family History Father Substance abuse Mother Multiple sclerosis Maternal Uncle FH: testicular cancer Maternal Grandfather Myocardial infarct Maternal Grandmother CVA (cerebral vascular accident) Other Mental health disorder Social History Household Members Other:: dad Housing: House Alcohol intake: current Alcohol intake frequency: a few times a week Alcohol type: hard liquor Comment: once a month 2 drink twisted tea Patient Tobacco Use Status: Current someday Tobacco user Tobacco use type: Cigarette Cigarette Packs Per Day: 0.5 Cigarettes Per Day: 10 Years Smoked: 2019, 5 cigarettes a day(08/09/2024) e-Cigarette/Vaping Use: Never Used Second Hand Smoke Exposure: Yes Substance Use Type: Marijuana service: No Current occupational status: unemployed Sexual orientation: Straight/Heterosexual Gender identity: Female Cognitive needs: No Hearing needs: No Vision needs: Yes (glasses) Female Reproductive History Menstrual Age of Menarche: 12 Review of Systems Const All systems reviewed & are unremarkable except as noted in HPI and below Physical Exam Vital Signs: Last Vital Signs Temp 98.5 F 08/15/25 15:46 Pulse 56 08/15/25 15:46 BP 128/95 H 08/15/25 15:46 Pulse Ox 99 08/15/25 15:46 BMI result Body Mass Index 29.7 Results AMB Rapid Strep AMB Rapid Strep Negative Last Edit by Irasema Genao MA on 08/15/25 16:04 Results Reviewed Results Reviewed: Laboratory Last Values Strep Scn Rapid Clinic Negative 08/15/25 16:00 will review her CXR Assessment & Plan Assessment & Plan (1) Cough: Code(s): R05.9 - Cough, unspecified Qualifiers: Cough type: acute Qualified Code(s): R05.1 - Acute cough Plan Most likely URI vs flu vs covid vs pneumonia vs asthma exacerbation plan - A respiratory panel was ordered - Symptoms managed with supportive care. - Recommended chest x-ray to rule out pneumonia. - Prescribed albuterol inhaler and prednisone for management. - tessalon perles as needed for cough - will call with the results - diet as tolerated - follow up with PCP Orders: Orders AMB Rapid Strep Screen Today Z13.9 - Encounter for screening, unspecified Resp Pathogen Panel - [facility] [place] J06.9 - Acute upper respiratory infection, unspecified XR chest 2V Today R05.9 - Cough, unspecified Medications: New prednisone 40 mg (2 x 20 mg) PO DAILY 10 tabs 0RF 5 days albuterol sulfate 90 mcg/actuation 2 puffs inhalation Q6H PRN 8.5 grams 0RF shortness of breath or wheezing or cough benzonatate 100 mg PO bid-tid PRN 21 caps 0RF Cough 7 days Coding Level of Care Code Est Pt Level 4 (36070) Diagnoses Acute cough R05.1 Cough type: acute
[2025-08-15 15:46] VITALS: BP 128/95; PULSE 56; TEMP 36.9; O2SAT 99; BMI 29.7
== END 2025-08-15 16:19 | disposition home or self-care (01) ==
PROVIDERS: PCP Internal Medicine; Visit Provider Physician Assistant Medical
DX: Z13.9 Encounter for screening, unspecified (principal); R05.1 Acute cough

== ENCOUNTER 2025-08-15 14:54 | Outpatient (REF) | payer OTHER, SELFPAY ==
--- NOTE | ~2025-08-15 | XR_ITS ---
EXAMINATION: XR CHEST CLINICAL INFORMATION: R05.9 - Cough, unspecified COMPARISON: 12/12/2021. TECHNIQUE: 2 views of the chest were obtained. FINDINGS: The cardiac, hilar, and mediastinal contours are normal. The lungs are clear bilaterally. There is no pneumothorax or pleural effusion. There is no focal osseous or soft tissue abnormality. XR/XR chest 2V IMPRESSION: No active pulmonary disease. Normal exam. Electronically signed by: Malik Barfield MD 08/15/2025 04:32 PM EDT
[2025-08-16 12:58] LABS: Chlamydia pneumoniae PCR Not Detected (Not Detect.); Coronavirus 229E PCR Not Detected (Not Detect.); Coronavirus HKU1 PCR Not Detected (Not Detect.); Coronavirus NL63 PCR Not Detected (Not Detect.); Coronavirus OC43 PCR Not Detected (Not Detect.); RSV PCR Not Detected (Not Detect.); Rhino/Enterovirus PCR Not Detected (Not Detect.)
[2025-08-16 13:03] LABS: Influenza A H1 PCR Not Detected (Not Detect.); Influenza A H1-2009 PCR Not Detected (Not Detect.); Influenza A H3 PCR Not Detected (Not Detect.); SARS-CoV-2 PCR Not Detected (Not Detect.)
== END 2025-08-15 14:55 | disposition home or self-care (01) ==
LOC: HO.HMGCX 14:54
PROVIDERS: PCP Internal Medicine; Visit Provider Physician Assistant Medical
DX: R05.1 Acute cough (principal); Z13.89 Encounter for screening for other disorder; R09.81 Nasal congestion; R06.02 Shortness of breath; F17.210 Nicotine dependence, cigarettes, uncomplicated
CPT/HCPCS: 71046; 87633; 87880; 99212

== ENCOUNTER → 2025-08-15 16:22 | Outpatient (BNV) | payer OTHER, SELFPAY | PROVIDERS: PCP Internal Medicine; Visit Provider Radiology Diagnostic Radiology | DX: R05.9 Cough, unspecified (principal) | CPT/HCPCS: 71046 ==

== ENCOUNTER 2025-10-01 13:49 | Emergency (ER) | payer OTHER, SELFPAY ==
--- NOTE | ~2025-10-01 | XR_ITS ---
CLINICAL HISTORY: slip and fall L ankle pain 3 view left foot Comparison: None provided Findings: Bones intact. No dislocations. No significant loss of joint space, osteophytes, or erosions. Cortical base sclerotic lesion in distal aspect of the tibia further evaluated on x-rays of the ankle. No ankle effusion. No radiopaque foreign body. IMPRESSION: 1. No acute findings. This document has been electronically signed by: Luci Lainez MD on 10/01/2025 17:29:32
--- NOTE | ~2025-10-01 | XR_ITS ---
CLINICAL HISTORY: slip and fall L ankle pain 4 view left ankle Comparison: None provided Findings: No acute fractures or dislocations. No significant arthritic change or erosions. 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 No radiopaque foreign body. IMPRESSION: 1. No acute findings. This document has been electronically signed by: Luci Lainez MD on 10/01/2025 17:30:28
[2025-10-01 13:54] VITALS: BP 137/67; PULSE 78; RESP 18; TEMP 36.6; O2SAT 98; BMI 29.9
--- NOTE | 2025-10-01 14:01 | ED.GENADULT ---
HPI - General Adult General Chief complaint: Extremity Injury, Lower Stated complaint: Injury Time Seen by Provider: 10/01/25 17:32 Source: patient Mode of arrival: ambulatory Limitations: no limitations History of Present Illness ED Provider: KATHY CHADWICK PA-C HPI narrative: 35 year old female with pmhx significant for anxiety, asthma, rheumatoid arthritis, migraines, glaucoma presents to the ED today for evaluation of left ankle pain s/p slip and fall at home 2 days ago. She reports suffering her hardwood floor when her sock slipped, causing her right foot/ankle to turn inward. Reports pain/swelling to outer aspect of left ankle. She is able to ambulate with discomfort. She has been icing and elevating the left ankle, taking Motrin without much relief. Her last dose of Motrin was yesterday. She is concerned that her ankle may be fractured. Denies numbness/tingling/weakness of the left lower extremity. Denies sustaining any other injury. Denies head strike or LOC. Not on thinners. Related Data Home Medications ?Medication ?Instructions ?Recorded ?Confirmed loteprednol etabonate 0.5 % eye 1 drp ophthalmic (eye) BID 07/31/21 08/09/24 drops,suspension (Lotemax) acetazolamide 500 mg 500 mg PO Q12H 11/21/21 08/09/24 capsule,extended release dorzolamide 22.3 mg-timolol 6.8 1 drp ophthalmic (eye) BID 08/05/23 08/09/24 mg/mL eye drops (Cosopt) ketorolac 0.5 % eye drops 1 drp ophthalmic (eye) QID PRN 07/26/25 adalimumab 40 mg/0.4 mL 40 mg subcut Q2W 08/15/25 subcutaneous pen kit (Humira(CF) Pen) Previous Rx's ?Medication ?Instructions ?Recorded albuterol sulfate 90 mcg/actuation 2 puff inhalation Q6H PRN 08/15/25 aerosol inhaler shortness of breath or wheezing or cough #8.5 grams benzonatate 100 mg capsule 100 mg PO bid-tid PRN Cough 7 days 08/15/25 #21 caps prednisone 20 mg tablet 40 mg (2 x 20 mg) PO DAILY 5 days 08/15/25 #10 tabs Allergies Allergy/AdvReac Type Severity Reaction Status Date / Time amoxicillin (Amoxicillin) Allergy Mild HIVES Verified 10/01/25 14:03 amitriptyline Allergy Unknown increase Verified 10/01/25 14:03 IOC sumatriptan Allergy Unknown Unknown Verified 10/01/25 14:03 Review of Systems Review of Systems: Constitutional: No fever, chills, fatigue, night sweats, weight changes ENT/Mouth: No ear pain, hearing loss, nasal congestion, sinus pain, rhinorrhea, sore throat Eyes: No eye pain, swelling, redness, vision changes, discharge Cardio: No chest pain, palpitations, GALVEZ, orthopnea, peripheral edema Pulm: No SOB, cough, sputum, wheezing, dyspnea, hemoptysis GI: No nausea, vomiting, hematemesis, abdominal pain, diarrhea, constipation, hematochezia, melena : No irregular bleeding, dysuria, frequency, urgency, hesitancy, hematuria, flank pain, urinary flow changes, urinary incontinence or retention MSK: No back pain, neck pain, joint pain, myalgias, +ankle pain Skin: No lesions, rashes Neuro: No weakness, numbness, paresthesias, LOC, dizziness, headache Psych: No anxiety/panic, depression, SI/HI, AH/VH All other systems reviewed and are negative. FORMERLY [facility], 1928–1983 Past Medical History Attestation statement: The following information was validated with the patient. Source: old records reviewed and nursing notes reviewed Medical History Well woman exam Rheumatoid arthritis Counseling for control, emergency contraceptive prescription Screen for sexually transmitted diseases Folliculitis Rash of foot Near syncope Annual physical exam Obesity (BMI 30-39.9) Migraine Juvenile rheumatoid arthritis Glaucoma Asthma Cervical dysplasia Generalized anxiety disorder Surgical History History of glaucoma History of eye surgery History of bilateral cataract extraction Family History Family History Father Substance abuse Mother Multiple sclerosis Maternal Uncle FH: testicular cancer Maternal Grandfather Myocardial infarct Maternal Grandmother CVA (cerebral vascular accident) Other Mental health disorder Social History Social History Household Members Other:: dad Housing: House Alcohol intake: current Alcohol intake frequency: a few times a week Alcohol type: hard liquor Comment: once a month 2 drink twisted tea Patient Tobacco Use Status: Current someday Tobacco user Tobacco use type: Cigarette Cigarette Packs Per Day: 0.5 Cigarettes Per Day: 10 Years Smoked: 2019, 5 cigarettes a day(08/09/2024) e-Cigarette/Vaping Use: Never Used Second Hand Smoke Exposure: Yes Substance Use Type: Marijuana Advance Directives: No Advance Directives Information Provided: No Do you have a plan to hurt others: No Plan service: No Current occupational status: unemployed Sexual orientation: Straight/Heterosexual Gender identity: Female Cognitive needs: No Hearing needs: No Vision needs: Yes (glasses) Physical Exam ED Vital Signs: Vital Signs - 24 hr 10/01/25 13:54 Temperature 98 F Pulse Rate 78 Respiratory Rate 18 Blood Pressure 137/67 Pulse Oximetry 98 Oxygen Delivery Method Room Air BMI result Body Mass Index 29.9 Vital signs stable vital signs stable General: Well appearing, in no acute distress. Skin: Warm, dry, intact. No rashes or lesions. Head: Normocephalic, atraumatic. EENT: Hearing is intact b/l. Conjunctiva clear. PERRLA. EOM intact. Moist mucous membranes.? Cardiac: Chest wall symmetric. RRR Lungs: Normal respiratory effort without accessory muscle use. CTA bilaterally Back: No midline spinous or paraspinal tenderness. No step off deformity. Ext: +noted swelling to lateral malleolus of left ankle. No overlying skin color changes or deformity. Tender to palpation over left lateral malleolus, no crepitus, deformity. Full ROM intact to left ankle with pain on flexion/extension. Ambulating with slight limping gait. 2+dp pulse intact. no calf tenderness. Neuro: AOx3. Normal speech. Course Course Course Narrative: This is a Rapid Medical Examination (RME) performed by Marcelino Chadwick PA-C in triage. Full HPI, ROS, assessment and treatment plan per primary provider in the Main ED. Hx: 35 yo F here for eval of L ankle/foot pain s/p slip and fall x yesterday. icing/elevating w/o improvement. PE/vitals: ambulating w/ steady gait. Plan: xrs Reevaluation(s) Reevaluation #1: X-rays unremarkable. Patient has a left ankle sprain. Damián wrap applied. crutches provided. advised outpatient follow up. medicated w/ toradol in ED. Patient has remained stable throughout ED visit today. Discussed worrisome signs and symptoms and when to return to the ED. All questions answered at this time. Patient is agreeable with disposition and stable for discharge. Medications Administered Discontinued Medications Generic Name Dose Route Start Last Admin Trade Name Colt PRN Reason Stop Dose Admin Ketorolac Tromethamine 30 mg 10/01/25 17:57 10/01/25 18:09 Ketorolac Tromethamine 30 Mg/Ml Vial IM 10/01/25 17:58 30 mg ONCE ONE Administration Procedures Orthopedic Splinting/Casting Injury #1: Side: left Lower Extremity Injury Location: ankle Lower Extremity Immobilizer: Damián wrap Other Orthopedic Equipment: crutches Medical Decision Making Medical Decision Making MDM Narrative: 35 year old female with pmhx significant for anxiety, asthma, rheumatoid arthritis, migraines, glaucoma presents to the ED today for evaluation of left ankle pain s/p slip and fall at home 2 days ago. vital signs stable. on exam, noted swelling to lateral malleolus of left ankle. No overlying skin color changes or deformity. Tender to palpation over left lateral malleolus, no crepitus, deformity. Full ROM intact to left ankle with pain on flexion/extension. Ambulating with slight limping gait. 2+dp pulse intact. no calf tenderness. Differential diagnosis includes MSK sprain/strain, fracture, dislocation. Unlikely neurovascular compromise, threat to limb, compartment syndrome. Plan for imaging and pain control. Differential Diagnosis Differential Diagnoses: The differential diagnosis associated with the presentation includes as above. Admission/Observation Not indicated Independent Interpretation I performed an independent interpretation of an: Plain X-Ray Interpretation: X-ray left ankle/foot without fracture Radiology Impression Discussion of test interpretation with radiology: I have reviewed the radiologist's reading. Radiologist Impression: Procedure(s): XR ankle LT min 3V Accession Number(s): [id number] cc: Javed Lopez MD; Kathy Chadwick~ Reason for Exam: slip and fall L ankle pain CLINICAL HISTORY: slip and fall L ankle pain 4 view left ankle Comparison: None provided Findings: No acute fractures or dislocations. No significant arthritic change or erosions. 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 No radiopaque foreign body. IMPRESSION: 1. No acute findings. This document has been electronically signed by: Luci Lainez MD on 10/01/2025 17:30:28 Procedure(s): XR foot LT min 3V Accession Number(s): [id number] cc: Javed Lopez MD; Kathy Chadwick~ Reason for Exam: slip and fall L ankle pain CLINICAL HISTORY: slip and fall L ankle pain 3 view left foot Comparison: None provided Findings: Bones intact. No dislocations. No significant loss of joint space, osteophytes, or erosions. Cortical base sclerotic lesion in distal aspect of the tibia further evaluated on x-rays of the ankle. No ankle effusion. No radiopaque foreign body. IMPRESSION: 1. No acute findings. This document has been electronically signed by: Luci Lainez MD on 10/01/2025 17:29:32 External Record Review External record reviewed: Inpatient record, Office record, Outpatient record, Prior outpatient labs, Prior outpatient radiology, Primary care record and Outside ED record Prescription Management I considered prescription management with: Pain Medication Social Determinants Patient?s care significantly limited by Social Determinants of Health including: Other Social Determinant of Health Critical Care Time Critical Care Time Critical Care Time: No Discharge Plan Discharge Clinical Impression: Left ankle sprain Patient Disposition: Home, Self-Care Instructions: Ankle Sprain (ED), P.R.I.C.E. Treatment (ED) Additional Instructions: You were evaluated in the ED today for a left ankle injury. Your x-rays do not demonstrate any fracture. You sprained your left ankle. We have provided you with an Damián wrap today. You state that you have crutches at home that you would like to use. Utilize crutches over the next few days to take the impact off of your ankle. Utilize RICE therapy - rest, ice, compress, elevate the left ankle above heart level. Take Tylenol/Motrin at home as needed for pain/discomfort. Follo up with your PCP. Return with any new or worsening symptoms. In the case of an emergency call 911. Prescriptions: No Action loteprednol etabonate [Lotemax] 0.5 % drops,suspension 1 drp ophthalmic (eye) BID Patient Comments: left dorzolamide-timolol [Cosopt] 22.3-6.8 mg/mL drops 1 drp ophthalmic (eye) BID Rx Instructions: Dr. Galloway and [facility] acetazolamide 500 mg capsule, extended release 500 mg PO Q12H Humira(CF) Pen 40 mg/0.4 mL pen injector kit 40 mg subcut Q2W albuterol sulfate 90 mcg/actuation HFA aerosol inhaler 2 puff inhalation Q6H PRN (Reason: shortness of breath or wheezing or cough) Qty: 8.5 0RF prednisone 20 mg tablet 40 mg PO DAILY 5 Days Qty: 10 0RF benzonatate 100 mg capsule 100 mg PO bid-tid PRN (Reason: Cough) 7 Days Qty: 21 0RF ketorolac 0.5 % drops 1 drp ophthalmic (eye) QID PRN Referrals: Po,Javed Garrison MD [Primary Care Provider, Internal Medicine] Stand Alone Forms: Work/School Release Print Language: [place]ib[place]ian
[2025-10-01 18:17] VITALS: BP 137/67; PULSE 78; RESP 18; TEMP 36.6; O2SAT 98
== END 2025-10-01 18:35 | disposition home or self-care (01) ==
PROVIDERS: Emergency Provider Emergency Medicine Emergency Medical Services; PCP Internal Medicine
DX: S93.402A Sprain of unspecified ligament of left ankle, initial encounter (principal); W18.30XA Fall on same level, unspecified, initial encounter; Y93.89 Activity, other specified; Y92.009 Unspecified place in unspecified non-institutional (private) residence as the place of occurrence of the external cause; F41.9 Anxiety disorder, unspecified; J45.909 Unspecified asthma, uncomplicated; G43.909 Migraine, unspecified, not intractable, without status migrainosus; M06.9 Rheumatoid arthritis, unspecified; Z79.899 Other long term (current) drug therapy
CPT/HCPCS: 73610; 73630; 96374; 99283; 99284; J1885

== ENCOUNTER → 2025-10-01 14:03 | Outpatient (BNV) | payer OTHER, SELFPAY | PROVIDERS: Emergency Provider Emergency Medicine Emergency Medical Services; PCP Internal Medicine; Visit Provider Specialist | DX: M25.572 Pain in left ankle and joints of left foot (principal); W01.0XXA Fall on same level from slipping, tripping and stumbling without subsequent striking against object, initial encounter | CPT/HCPCS: 73610; 73630 ==